=== PATIENT | female | born 1980 | race Asian ===

== ENCOUNTER 2021-09-18 18:13 | Inpatient (IN) | payer MEDICAID, OTHER ==
[~2021-09-18] VITALS: Ht 152.4 cm; Wt 43.1 kg
[2021-09-18] MEDS ORDERED: HydrOXYzine PAMOATE 25 MG CAPSULE PO PRN (20:00)
[2021-09-18] MEDS ORDERED: ZOLPIDEM TARTRATE 5 MG TABLET PO PRN (20:00)
[2021-09-18] MEDS ORDERED: ChlorproMAZINE HCL 50 MG TABLET PO PRN (20:00)
[2021-09-18 20:39] VITALS: BP 101/70
[2021-09-18] MEDS: OLANZapine 5 MG RAPDIS TABLET PO SCH (20:56)
[2021-09-18] MEDS ORDERED: MIRTAZAPINE 15 MG TABLET PO SCH (21:00)
[2021-09-18 22:20] LABS: APPEARANCE,URINE CLEAR (CLEAR); BILIRUBIN,URINE NEGATIVE (NEGATIVE); GLUCOSE, URINE (UA) NEGATIVE (NEGATIVE); KETONES,URINE NEGATIVE (NEGATIVE); LEUKOCYTE ESTERASE ,URINE LARGE (NEGATIVE); NITRATE,URINE NEGATIVE (NEGATIVE); OCCULT BLOOD,URINE NEGATIVE (NEGATIVE); PH,URINE 7.5 (5.0-8.0); PROTEIN,URINE NEGATIVE (NEGATIVE); UROBILINOGEN,URINE 0.2 mg/dL (<=1.0)
[2021-09-18 22:24] LABS: AMPHET/METH SCREEN,URINE NEGATIVE (NEGATIVE); BARBITURATE SCREEN, URINE NEGATIVE (NEGATIVE); BENZODIAZEPINES SCREEN,URINE NEGATIVE (NEGATIVE); CANNABINOID SCREEN,URINE NEGATIVE (NEGATIVE); COCAINE SCREEN,URINE NEGATIVE (NEGATIVE); METHADONE SCREEN, URINE NEGATIVE (NEGATIVE); OPIATE SCREEN,URINE NEGATIVE (NEGATIVE); PHENCYCLIDINE SCREEN,URINE NEGATIVE (NEGATIVE)
[2021-09-18 22:33] LABS: SQUAMOUS EPITHELIAL CELL,UR Many /LPF (None Seen)
[2021-09-18 22:34] LABS: BACTERIA,URINE Few /HPF (None Seen); RBC,URINE None Seen /HPF (0-2)
[2021-09-19 04:00] VITALS: BP 104/77
[2021-09-19 07:07] LABS: BASOPHILS % (AUTO) 0.9 % (0.0-2.0); EOSINOPHILS % (AUTO) 1.6 % (1.0-6.0); HEMATOCRIT 39.7 % (36-46); HEMOGLOBIN 12.6 g/dL (12.0-16.0); MEAN CORPUSCULAR HEMOGLOBIN 26.1 pg (26.0-34.0); MEAN CORPUSCULAR HGB CONC 31.6 G/dL (31.0-37.0); MEAN CORPUSCULAR VOLUME 83 fL (80-100); MONOCYTES % (AUTO) 12.5 % (2.0-9.0); NEUTROPHILS # (AUTO) 4.7 K/uL (1.8-7.7); PLATELET COUNT (AUTO) 274 K/uL (150-450); RED BLOOD CELL COUNT(AUTO) 4.82 MIL/uL (4.00-5.20); RED CELL DISTRIBUTION WIDTH 14.9 % (11.5-14.5)
[2021-09-19 07:19] LABS: ANION GAP 10 mmol/L (8-16); CALCIUM, TOTAL 9.3 mg/dL (8.8-10.5); CARBON DIOXIDE 26 mmol/L (22-29); CHLORIDE 104 mmol/L (98-107); CREATININE 0.76 mg/dL (0.60-1.30); GLOMERULAR FILTR. RATE CALC > 60 mL/min (>60); GLUCOSE,RANDOM 103 mg/dL (70-110); POTASSIUM 4.3 mmol/L (3.5-5.1); SODIUM SERUM 140 mmol/L (136-145); UREA NITROGEN, BLOOD 10 mg/dL (7-18)
[2021-09-19 07:34] LABS: ALANINE AMINOTRANSFERASE 21 U/L (12-78); ALBUMIN 3.4 g/dL (3.4-5.0); ALKALINE PHOSPHATASE 43 U/L (46-116); ASPARTATE AMINOTRANSFERASE 18 U/L (15-37); BILIRUBIN,TOTAL 0.3 mg/dL (0.1-1.0); FREE T4 (FREE THYROXINE) 1.25 ng/dL (0.76-1.46); HCG,QUANTITATIVE < 1 mIU/mL (0-6); THYROID STIMULATING HORMONE 5.06 uIU/mL (0.36-3.74); TOTAL PROTEIN, SERUM 7.2 g/dL (6.4-8.2)
[2021-09-19 08:00] VITALS: BP 105/73
[2021-09-19] MEDS ORDERED: PROMETHAZINE HCL 25 MG TABLET PO PRN (09:15)
[2021-09-19] MEDS ORDERED: ACETAMINOPHEN 325 MG TABLET PO PRN (09:15)
[2021-09-19] MEDS ORDERED: OLANZapine 5 MG RAPDIS TABLET PO PRN (09:15)
[2021-09-19] MEDS ORDERED: MAG HYDROX/AL HYDROX/SIMETH ES 30 ML SUSPENSION UDCUP PO PRN (09:15)
[2021-09-19] MEDS ORDERED: CYANOCOBALAMIN 1,000 MCG/ML VIAL IM ONE (09:15)
[2021-09-19] MEDS ORDERED: LOPERAMIDE HCL 2 MG CAPSULE PO PRN (09:15)
[2021-09-19] MEDS ORDERED: HydrOXYzine PAMOATE 50 MG CAPSULE PO PRN (09:15)
[2021-09-19] MEDS ORDERED: GuaiFENesin/D-METHORPHAN [SUGAR-FREE] 200-20MG/10 ML SYRUP UDCUP PO PRN (09:15)
[2021-09-19] MEDS ORDERED: TUBERCULIN, PURIFIED PROTEIN DERIVATIVE 5 TU/0.1 ML SYRINGE ID ONE (09:15)
[2021-09-19] MEDS: LORazepam 0.5 MG TABLET PO SCH ×3 (09:22→20:13)
[2021-09-19] MEDS: THIAMINE 100 MG TABLET PO SCH (16:08)
[2021-09-19 16:29] VITALS: BP 105/75
[2021-09-19] MEDS: MELATONIN 5 MG TABLET PO SCH (20:08)
[2021-09-19] MEDS: CEPHALEXIN MONOHYDRATE 500 MG CAPSULE PO SCH (20:10)
[2021-09-19] MEDS: OLANZapine 5 MG RAPDIS TABLET PO SCH (20:27)
[2021-09-20 07:12] VITALS: BP 108/80
[2021-09-20 08:31] VITALS: BP 99/61
[2021-09-20] MEDS: THIAMINE 100 MG TABLET PO SCH ×2 (10:06→16:59)
[2021-09-20] MEDS: LORazepam 0.5 MG TABLET PO SCH ×3 (10:07→21:09)
[2021-09-20] MEDS: FOLIC ACID 1 MG TABLET PO SCH (10:07)
[2021-09-20] MEDS: OMEGA-3/DHA/EPA/FISH OIL 1,000 MG CAPSULE PO SCH (10:07)
[2021-09-20] MEDS: CEPHALEXIN MONOHYDRATE 500 MG CAPSULE PO SCH ×2 (10:07→16:59)
[2021-09-20] MEDS: MULTIVITAMINS WITH MINERALS, THERAPEUTIC TABLET PO SCH (10:08)
[2021-09-20 12:28] LABS: HEMOGLOBIN A1C 4.3 % (3.8-5.6)
[2021-09-20 12:44] LABS: CHOL/HDL RATIO 3.7 (3.9-5.7); FREE T4 (FREE THYROXINE) 1.26 ng/dL (0.76-1.46); THYROID STIMULATING HORMONE 5.12 uIU/mL (0.36-3.74)
[2021-09-20 17:33] VITALS: BP 91/62
[2021-09-20] MEDS: MELATONIN 5 MG TABLET PO SCH (21:09)
[2021-09-20] MEDS: OLANZapine 5 MG RAPDIS TABLET PO SCH (21:10)
[2021-09-20] MEDS: MIRTAZAPINE 15 MG TABLET PO SCH (21:10)
[2021-09-21 07:00] VITALS: BP 116/69
[2021-09-21] MEDS: OMEGA-3/DHA/EPA/FISH OIL 1,000 MG CAPSULE PO SCH (08:34)
[2021-09-21] MEDS: FOLIC ACID 1 MG TABLET PO SCH (08:34)
[2021-09-21] MEDS: MULTIVITAMINS WITH MINERALS, THERAPEUTIC TABLET PO SCH (08:34)
[2021-09-21] MEDS: CEPHALEXIN MONOHYDRATE 500 MG CAPSULE PO SCH ×2 (08:34→17:44)
[2021-09-21] MEDS: THIAMINE 100 MG TABLET PO SCH ×2 (08:34→17:44)
[2021-09-21] MEDS: LORazepam 0.5 MG TABLET PO SCH ×3 (08:38→20:56)
[2021-09-21 09:11] VITALS: BP 111/69
[2021-09-21 16:30] VITALS: BP 99/75
[2021-09-21] MEDS: MIRTAZAPINE 15 MG TABLET PO SCH (20:56)
[2021-09-21] MEDS: MELATONIN 5 MG TABLET PO SCH (20:56)
[2021-09-21] MEDS: OLANZapine 5 MG RAPDIS TABLET PO SCH (21:43)
[2021-09-22 07:19] LABS: PHOSPHORUS 5.4 mg/dL (2.5-4.9)
[2021-09-22 09:13] VITALS: BP 96/66
[2021-09-22] MEDS: OMEGA-3/DHA/EPA/FISH OIL 1,000 MG CAPSULE PO SCH (09:14)
[2021-09-22] MEDS: THIAMINE 100 MG TABLET PO SCH ×2 (09:14→16:37)
[2021-09-22] MEDS: FOLIC ACID 1 MG TABLET PO SCH (09:14)
[2021-09-22] MEDS: CEPHALEXIN MONOHYDRATE 500 MG CAPSULE PO SCH ×2 (09:18→16:37)
[2021-09-22] MEDS: LORazepam 0.5 MG TABLET PO SCH ×3 (09:18→20:31)
[2021-09-22] MEDS: MULTIVITAMINS WITH MINERALS, THERAPEUTIC TABLET PO SCH (09:18)
[2021-09-22 16:15] VITALS: BP 93/67
[2021-09-22] MEDS: OLANZapine 5 MG RAPDIS TABLET PO SCH (20:31)
[2021-09-22] MEDS: MELATONIN 5 MG TABLET PO SCH (20:31)
[2021-09-22] MEDS: MIRTAZAPINE 15 MG TABLET PO SCH (20:31)
[2021-09-23 07:52] LABS: PHOSPHORUS 4.4 mg/dL (2.5-4.9)
[2021-09-23 08:33] VITALS: BP 102/70
[2021-09-23] MEDS: CEPHALEXIN MONOHYDRATE 500 MG CAPSULE PO SCH ×2 (08:34→16:18)
[2021-09-23] MEDS: LORazepam 0.5 MG TABLET PO SCH ×3 (08:35→20:43)
[2021-09-23] MEDS: OMEGA-3/DHA/EPA/FISH OIL 1,000 MG CAPSULE PO SCH (08:36)
[2021-09-23] MEDS: MULTIVITAMINS WITH MINERALS, THERAPEUTIC TABLET PO SCH (08:36)
[2021-09-23] MEDS: THIAMINE 100 MG TABLET PO SCH ×2 (08:36→16:18)
[2021-09-23] MEDS: FOLIC ACID 1 MG TABLET PO SCH (08:36)
[2021-09-23 08:43] LABS: COVID AG,FIA SOURCE NASAL SWAB
[2021-09-23 16:13] VITALS: BP 93/61
[2021-09-23] MEDS: MIRTAZAPINE 15 MG TABLET PO SCH (20:43)
[2021-09-23] MEDS: OLANZapine 10 MG RAPDIS TABLET PO SCH (20:43)
[2021-09-23] MEDS: MELATONIN 5 MG TABLET PO SCH (21:06)
[2021-09-24] MEDS: FOLIC ACID 1 MG TABLET PO SCH (08:15)
[2021-09-24] MEDS: CEPHALEXIN MONOHYDRATE 500 MG CAPSULE PO SCH ×2 (08:15→16:47)
[2021-09-24] MEDS: THIAMINE 100 MG TABLET PO SCH ×2 (08:15→16:48)
[2021-09-24] MEDS: LORazepam 0.5 MG TABLET PO SCH ×3 (08:15→21:09)
[2021-09-24] MEDS: MULTIVITAMINS WITH MINERALS, THERAPEUTIC TABLET PO SCH (08:15)
[2021-09-24] MEDS: OMEGA-3/DHA/EPA/FISH OIL 1,000 MG CAPSULE PO SCH (08:15)
[2021-09-24 08:41] VITALS: BP 113/76
[2021-09-24 16:00] VITALS: BP 99/68
[2021-09-24] MEDS: MIRTAZAPINE 15 MG TABLET PO SCH (21:08)
[2021-09-24] MEDS: MELATONIN 5 MG TABLET PO SCH (21:08)
[2021-09-24] MEDS: OLANZapine 10 MG RAPDIS TABLET PO SCH (21:09)
[2021-09-25 07:32] LABS: ALANINE AMINOTRANSFERASE 23 U/L (12-78); ALBUMIN 3.5 g/dL (3.4-5.0); ALKALINE PHOSPHATASE 44 U/L (46-116); ANION GAP 7 mmol/L (8-16); ASPARTATE AMINOTRANSFERASE 23 U/L (15-37); BILIRUBIN,TOTAL 0.3 mg/dL (0.1-1.0); CARBON DIOXIDE 28 mmol/L (22-29); CHLORIDE 105 mmol/L (98-107); CREATININE 0.73 mg/dL (0.60-1.30); GLOMERULAR FILTR. RATE CALC > 60 mL/min (>60); GLUCOSE,RANDOM 92 mg/dL (70-110); POTASSIUM 4.1 mmol/L (3.5-5.1); SODIUM SERUM 140 mmol/L (136-145); TOTAL PROTEIN, SERUM 6.9 g/dL (6.4-8.2); UREA NITROGEN, BLOOD 16 mg/dL (7-18)
[2021-09-25 08:00] VITALS: BP 99/58
[2021-09-25] MEDS: CEPHALEXIN MONOHYDRATE 500 MG CAPSULE PO SCH ×2 (08:19→16:35)
[2021-09-25] MEDS: LORazepam 0.5 MG TABLET PO SCH ×3 (08:19→21:00)
[2021-09-25] MEDS: THIAMINE 100 MG TABLET PO SCH ×2 (08:19→16:35)
[2021-09-25] MEDS: FOLIC ACID 1 MG TABLET PO SCH (08:19)
[2021-09-25] MEDS: OMEGA-3/DHA/EPA/FISH OIL 1,000 MG CAPSULE PO SCH (08:20)
[2021-09-25] MEDS: MULTIVITAMINS WITH MINERALS, THERAPEUTIC TABLET PO SCH (08:20)
[2021-09-25 16:21] VITALS: BP 92/61
[2021-09-25] MEDS: OLANZapine 10 MG RAPDIS TABLET PO SCH (21:06)
[2021-09-25] MEDS: MELATONIN 5 MG TABLET PO SCH (21:06)
[2021-09-25] MEDS: MIRTAZAPINE 30 MG TABLET PO SCH (21:07)
[2021-09-26 08:00] VITALS: BP 92/61
[2021-09-26] MEDS: CEPHALEXIN MONOHYDRATE 500 MG CAPSULE PO SCH ×2 (10:10→17:11)
[2021-09-26] MEDS: FOLIC ACID 1 MG TABLET PO SCH (10:10)
[2021-09-26] MEDS: THIAMINE 100 MG TABLET PO SCH ×2 (10:10→17:11)
[2021-09-26] MEDS: MULTIVITAMINS WITH MINERALS, THERAPEUTIC TABLET PO SCH (10:10)
[2021-09-26] MEDS: OMEGA-3/DHA/EPA/FISH OIL 1,000 MG CAPSULE PO SCH (10:10)
[2021-09-26] MEDS: LORazepam 0.5 MG TABLET PO SCH ×3 (10:10→21:03)
[2021-09-26 16:00] VITALS: BP 100/69
[2021-09-26] MEDS ORDERED: OMEG-135 PO (16:21)
[2021-09-26] MEDS ORDERED: OLAN10TA26 PO (16:21)
[2021-09-26] MEDS ORDERED: LORA-999 PO (16:21)
[2021-09-26] MEDS ORDERED: MELA5TAB40 PO (16:21)
[2021-09-26] MEDS ORDERED: MIRT30 PO (16:21)
[2021-09-26] MEDS: OLANZapine 10 MG RAPDIS TABLET PO SCH (21:03)
[2021-09-26] MEDS: MELATONIN 5 MG TABLET PO SCH (21:03)
[2021-09-26] MEDS: MIRTAZAPINE 30 MG TABLET PO SCH (21:03)
[2021-09-27 08:00] VITALS: BP 101/63
[2021-09-27] MEDS: FOLIC ACID 1 MG TABLET PO SCH (08:33)
[2021-09-27] MEDS: OMEGA-3/DHA/EPA/FISH OIL 1,000 MG CAPSULE PO SCH (08:33)
[2021-09-27] MEDS: LORazepam 0.5 MG TABLET PO SCH ×3 (08:33→20:14)
[2021-09-27] MEDS: THIAMINE 100 MG TABLET PO SCH ×2 (08:33→16:43)
[2021-09-27] MEDS: MULTIVITAMINS WITH MINERALS, THERAPEUTIC TABLET PO SCH (08:33)
[2021-09-27 09:20] VITALS: BP 101/63
[2021-09-27 16:44] VITALS: BP 96/66
[2021-09-27] MEDS: OLANZapine 10 MG RAPDIS TABLET PO SCH (20:14)
[2021-09-27] MEDS: MELATONIN 5 MG TABLET PO SCH (20:14)
[2021-09-27] MEDS: MIRTAZAPINE 30 MG TABLET PO SCH (20:14)
[2021-09-28 04:34] VITALS: BP 94/60
[2021-09-28] MEDS: THIAMINE 100 MG TABLET PO SCH ×2 (08:36→16:57)
[2021-09-28] MEDS: MULTIVITAMINS WITH MINERALS, THERAPEUTIC TABLET PO SCH (08:36)
[2021-09-28] MEDS: OMEGA-3/DHA/EPA/FISH OIL 1,000 MG CAPSULE PO SCH (08:36)
[2021-09-28] MEDS: FOLIC ACID 1 MG TABLET PO SCH (08:36)
[2021-09-28] MEDS: LORazepam 0.5 MG TABLET PO SCH ×3 (08:36→21:00)
[2021-09-28 10:51] VITALS: BP 114/73
[2021-09-28 18:39] VITALS: BP 95/63
[2021-09-28] MEDS: MIRTAZAPINE 15 MG TABLET PO SCH (20:51)
[2021-09-28] MEDS: MELATONIN 5 MG TABLET PO SCH (20:51)
[2021-09-28] MEDS: OLANZapine 10 MG RAPDIS TABLET PO SCH (20:51)
[2021-09-29] MEDS: LORazepam 0.5 MG TABLET PO SCH ×3 (08:21→20:26)
[2021-09-29] MEDS: OMEGA-3/DHA/EPA/FISH OIL 1,000 MG CAPSULE PO SCH (08:21)
[2021-09-29] MEDS: MULTIVITAMINS WITH MINERALS, THERAPEUTIC TABLET PO SCH (08:21)
[2021-09-29] MEDS: FOLIC ACID 1 MG TABLET PO SCH (08:21)
[2021-09-29] MEDS: THIAMINE 100 MG TABLET PO SCH (08:21)
[2021-09-29 10:33] VITALS: BP 99/69
[2021-09-29 16:26] VITALS: BP 109/75
[2021-09-29] MEDS: MIRTAZAPINE 15 MG TABLET PO SCH (20:27)
[2021-09-29] MEDS: OLANZapine 10 MG RAPDIS TABLET PO SCH (20:27)
[2021-09-29] MEDS: MELATONIN 5 MG TABLET PO SCH (20:27)
[2021-09-30] MEDS: OMEGA-3/DHA/EPA/FISH OIL 1,000 MG CAPSULE PO SCH (08:21)
[2021-09-30] MEDS: LORazepam 0.5 MG TABLET PO SCH ×3 (08:21→21:18)
[2021-09-30] MEDS: MULTIVITAMINS WITH MINERALS, THERAPEUTIC TABLET PO SCH (08:21)
[2021-09-30 08:45] VITALS: BP 116/82
[2021-09-30 12:37] LABS: COVID AG,FIA SOURCE NASAL SWAB
[2021-09-30 16:06] VITALS: BP 93/57
[2021-09-30] MEDS: MELATONIN 5 MG TABLET PO SCH (21:18)
[2021-09-30] MEDS: MIRTAZAPINE 15 MG TABLET PO SCH (21:19)
[2021-10-01 08:00] VITALS: BP 97/59
[2021-10-01] MEDS: OLANZapine 5 MG RAPDIS TABLET PO SCH ×3 (09:19→16:34)
[2021-10-01] MEDS: MULTIVITAMINS WITH MINERALS, THERAPEUTIC TABLET PO SCH (09:19)
[2021-10-01] MEDS: OMEGA-3/DHA/EPA/FISH OIL 1,000 MG CAPSULE PO SCH (09:19)
[2021-10-01] MEDS: LORazepam 0.5 MG TABLET PO SCH ×3 (09:19→21:00)
[2021-10-01 16:35] VITALS: BP 100/55
[2021-10-01] MEDS: MELATONIN 5 MG TABLET PO SCH (20:43)
[2021-10-01] MEDS: MIRTAZAPINE 15 MG TABLET PO SCH (20:43)
[2021-10-02] MEDS: OLANZapine 5 MG RAPDIS TABLET PO SCH ×3 (08:50→16:20)
[2021-10-02] MEDS: MULTIVITAMINS WITH MINERALS, THERAPEUTIC TABLET PO SCH (08:50)
[2021-10-02] MEDS: LORazepam 0.5 MG TABLET PO SCH ×3 (08:50→20:10)
[2021-10-02] MEDS: OMEGA-3/DHA/EPA/FISH OIL 1,000 MG CAPSULE PO SCH (08:50)
[2021-10-02 09:27] VITALS: BP 107/95
[2021-10-02 16:00] VITALS: BP 101/85
[2021-10-02] MEDS: MELATONIN 5 MG TABLET PO SCH (20:10)
[2021-10-02] MEDS: MIRTAZAPINE 15 MG TABLET PO SCH (20:10)
[2021-10-03] MEDS: OLANZapine 5 MG RAPDIS TABLET PO SCH ×3 (08:17→17:41)
[2021-10-03] MEDS: OMEGA-3/DHA/EPA/FISH OIL 1,000 MG CAPSULE PO SCH (08:17)
[2021-10-03] MEDS: MULTIVITAMINS WITH MINERALS, THERAPEUTIC TABLET PO SCH (08:17)
[2021-10-03] MEDS: LORazepam 0.5 MG TABLET PO SCH ×3 (08:18→20:39)
[2021-10-03 09:31] VITALS: BP 98/64
[2021-10-03 16:00] VITALS: BP 99/75
[2021-10-03] MEDS: MIRTAZAPINE 15 MG TABLET PO SCH (20:39)
[2021-10-03] MEDS: MELATONIN 5 MG TABLET PO SCH (20:39)
[2021-10-04 03:00] VITALS: BP 105/71
[2021-10-04 08:45] VITALS: BP 107/60
[2021-10-04] MEDS: MULTIVITAMINS WITH MINERALS, THERAPEUTIC TABLET PO SCH (09:27)
[2021-10-04] MEDS: OMEGA-3/DHA/EPA/FISH OIL 1,000 MG CAPSULE PO SCH (09:27)
[2021-10-04] MEDS: LORazepam 0.5 MG TABLET PO SCH ×3 (09:27→20:48)
[2021-10-04] MEDS: OLANZapine 5 MG RAPDIS TABLET PO SCH ×4 (09:27→16:46)
[2021-10-04 16:32] VITALS: BP 98/62
[2021-10-04] MEDS: MIRTAZAPINE 15 MG TABLET PO SCH (20:48)
[2021-10-04] MEDS: MELATONIN 5 MG TABLET PO SCH (20:48)
[2021-10-05 08:45] VITALS: BP 94/64
[2021-10-05] MEDS: MULTIVITAMINS WITH MINERALS, THERAPEUTIC TABLET PO SCH (08:59)
[2021-10-05] MEDS: OMEGA-3/DHA/EPA/FISH OIL 1,000 MG CAPSULE PO SCH (08:59)
[2021-10-05] MEDS: LORazepam 0.5 MG TABLET PO SCH ×3 (08:59→21:08)
[2021-10-05] MEDS: OLANZapine 5 MG RAPDIS TABLET PO SCH ×3 (08:59→17:36)
[2021-10-05 16:00] VITALS: BP 96/63
[2021-10-05] MEDS: MIRTAZAPINE 15 MG TABLET PO SCH (21:08)
[2021-10-05] MEDS: MELATONIN 5 MG TABLET PO SCH (21:09)
[2021-10-06 08:22] VITALS: BP 111/60
[2021-10-06] MEDS: MULTIVITAMINS WITH MINERALS, THERAPEUTIC TABLET PO SCH (09:57)
[2021-10-06] MEDS: OMEGA-3/DHA/EPA/FISH OIL 1,000 MG CAPSULE PO SCH (09:57)
[2021-10-06] MEDS: OLANZapine 5 MG RAPDIS TABLET PO SCH ×3 (09:57→17:30)
[2021-10-06] MEDS: LORazepam 0.5 MG TABLET PO SCH ×3 (09:57→21:43)
[2021-10-06 16:21] VITALS: BP 99/64
[2021-10-06 16:22] VITALS: BP 99/64
[2021-10-06] MEDS: MELATONIN 5 MG TABLET PO SCH (21:42)
[2021-10-06] MEDS: MIRTAZAPINE 15 MG TABLET PO SCH (21:43)
[2021-10-07] MEDS: OLANZapine 5 MG RAPDIS TABLET PO SCH ×3 (08:04→16:29)
[2021-10-07] MEDS: MULTIVITAMINS WITH MINERALS, THERAPEUTIC TABLET PO SCH (08:04)
[2021-10-07] MEDS: LORazepam 0.5 MG TABLET PO SCH ×3 (08:04→20:47)
[2021-10-07] MEDS: OMEGA-3/DHA/EPA/FISH OIL 1,000 MG CAPSULE PO SCH (08:04)
[2021-10-07 08:26] VITALS: BP 107/55
[2021-10-07 08:53] LABS: COVID AG,FIA SOURCE NASOPHARYNGEAL
[2021-10-07 16:44] VITALS: BP 91/62
[2021-10-07] MEDS: MELATONIN 5 MG TABLET PO SCH (20:47)
[2021-10-07] MEDS: MIRTAZAPINE 15 MG TABLET PO SCH (20:47)
[2021-10-08] MEDS: LORazepam 0.5 MG TABLET PO SCH ×3 (08:35→21:00)
[2021-10-08] MEDS: OMEGA-3/DHA/EPA/FISH OIL 1,000 MG CAPSULE PO SCH (08:35)
[2021-10-08] MEDS: MULTIVITAMINS WITH MINERALS, THERAPEUTIC TABLET PO SCH (08:35)
[2021-10-08] MEDS: OLANZapine 5 MG RAPDIS TABLET PO SCH ×3 (08:35→16:23)
[2021-10-08 08:41] VITALS: BP 104/63
[2021-10-08 16:12] VITALS: BP 99/62
[2021-10-08] MEDS: MELATONIN 5 MG TABLET PO SCH (21:06)
[2021-10-08] MEDS: MIRTAZAPINE 30 MG TABLET PO SCH (21:06)
[2021-10-09 05:15] VITALS: BP 90/59
[2021-10-09] MEDS: MULTIVITAMINS WITH MINERALS, THERAPEUTIC TABLET PO SCH (08:18)
[2021-10-09] MEDS: LORazepam 0.5 MG TABLET PO SCH ×3 (08:18→20:57)
[2021-10-09] MEDS: OMEGA-3/DHA/EPA/FISH OIL 1,000 MG CAPSULE PO SCH (08:18)
[2021-10-09] MEDS: OLANZapine 5 MG RAPDIS TABLET PO SCH ×3 (08:18→16:46)
[2021-10-09 09:30] VITALS: BP 109/59
[2021-10-09 16:00] VITALS: BP 98/58
[2021-10-09 16:56] VITALS: BP 98/58
[2021-10-09 17:45] LABS: ALANINE AMINOTRANSFERASE 25 U/L (12-78); ALBUMIN 3.1 g/dL (3.4-5.0); ALKALINE PHOSPHATASE 51 U/L (46-116); ANION GAP 4 mmol/L (8-16); ASPARTATE AMINOTRANSFERASE 19 U/L (15-37); BILIRUBIN,TOTAL 0.2 mg/dL (0.1-1.0); CALCIUM, TOTAL 8.6 mg/dL (8.8-10.5); CARBON DIOXIDE 30 mmol/L (22-29); CHLORIDE 105 mmol/L (98-107); GLOMERULAR FILTR. RATE CALC > 60 mL/min (>60); GLUCOSE,RANDOM 88 mg/dL (70-110); SODIUM SERUM 139 mmol/L (136-145); TOTAL PROTEIN, SERUM 6.4 g/dL (6.4-8.2); UREA NITROGEN, BLOOD 23 mg/dL (7-18)
[2021-10-09] MEDS: MELATONIN 5 MG TABLET PO SCH (20:55)
[2021-10-09] MEDS: MIRTAZAPINE 30 MG TABLET PO SCH (20:55)
[2021-10-10 08:08] VITALS: BP 106/72
[2021-10-10] MEDS: LORazepam 0.5 MG TABLET PO SCH ×3 (09:02→20:33)
[2021-10-10] MEDS: OMEGA-3/DHA/EPA/FISH OIL 1,000 MG CAPSULE PO SCH (09:02)
[2021-10-10] MEDS: MULTIVITAMINS WITH MINERALS, THERAPEUTIC TABLET PO SCH (09:02)
[2021-10-10] MEDS: OLANZapine 5 MG RAPDIS TABLET PO SCH ×3 (09:03→16:42)
[2021-10-10 16:41] VITALS: BP 90/58
[2021-10-10 20:33] VITALS: BP 90/59
[2021-10-10] MEDS: MIRTAZAPINE 30 MG TABLET PO SCH (20:33)
[2021-10-10] MEDS: MELATONIN 5 MG TABLET PO SCH (20:33)
[2021-10-10 21:45] VITALS: BP 128/70
[2021-10-11] MEDS: OLANZapine 5 MG RAPDIS TABLET PO SCH ×3 (08:39→16:41)
[2021-10-11] MEDS: LORazepam 0.5 MG TABLET PO SCH ×3 (08:39→20:26)
[2021-10-11] MEDS: MULTIVITAMINS WITH MINERALS, THERAPEUTIC TABLET PO SCH (08:39)
[2021-10-11] MEDS: OMEGA-3/DHA/EPA/FISH OIL 1,000 MG CAPSULE PO SCH (08:39)
[2021-10-11 09:42] VITALS: BP 100/64
[2021-10-11 17:08] VITALS: BP 99/67
[2021-10-11] MEDS: MELATONIN 5 MG TABLET PO SCH (20:26)
[2021-10-11] MEDS: MIRTAZAPINE 30 MG TABLET PO SCH (20:26)
[2021-10-12] MEDS: LORazepam 0.5 MG TABLET PO SCH ×3 (08:22→21:00)
[2021-10-12] MEDS: OLANZapine 5 MG RAPDIS TABLET PO SCH ×3 (08:22→16:39)
[2021-10-12] MEDS: OMEGA-3/DHA/EPA/FISH OIL 1,000 MG CAPSULE PO SCH (08:22)
[2021-10-12] MEDS: MULTIVITAMINS WITH MINERALS, THERAPEUTIC TABLET PO SCH (08:22)
[2021-10-12 10:15] VITALS: BP 97/57
[2021-10-12 16:24] VITALS: BP 97/60
[2021-10-12] MEDS: MELATONIN 5 MG TABLET PO SCH (21:07)
[2021-10-12] MEDS: MIRTAZAPINE 30 MG TABLET PO SCH (21:07)
[2021-10-13] MEDS: OLANZapine 5 MG RAPDIS TABLET PO SCH ×3 (08:15→16:13)
[2021-10-13] MEDS: MULTIVITAMINS WITH MINERALS, THERAPEUTIC TABLET PO SCH (08:15)
[2021-10-13] MEDS: LORazepam 0.5 MG TABLET PO SCH ×3 (08:15→20:08)
[2021-10-13] MEDS: OMEGA-3/DHA/EPA/FISH OIL 1,000 MG CAPSULE PO SCH (08:15)
[2021-10-13 10:35] VITALS: BP 95/63
[2021-10-13 16:27] VITALS: BP 105/76
[2021-10-13] MEDS: MELATONIN 5 MG TABLET PO SCH (20:08)
[2021-10-13] MEDS: MIRTAZAPINE 30 MG TABLET PO SCH (20:08)
[2021-10-14 08:00] VITALS: BP 106/65
[2021-10-14] MEDS: LORazepam 0.5 MG TABLET PO SCH ×3 (08:27→20:19)
[2021-10-14] MEDS: OMEGA-3/DHA/EPA/FISH OIL 1,000 MG CAPSULE PO SCH (08:27)
[2021-10-14] MEDS: OLANZapine 5 MG RAPDIS TABLET PO SCH ×3 (08:27→16:34)
[2021-10-14] MEDS: MULTIVITAMINS WITH MINERALS, THERAPEUTIC TABLET PO SCH (08:27)
[2021-10-14 10:56] LABS: COVID AG,FIA SOURCE NASAL SWAB
[2021-10-14 16:35] VITALS: BP 94/60
[2021-10-14] MEDS: MELATONIN 5 MG TABLET PO SCH (20:18)
[2021-10-14] MEDS: MIRTAZAPINE 30 MG TABLET PO SCH (20:18)
[2021-10-15 08:00] VITALS: BP 105/62
[2021-10-15] MEDS: OMEGA-3/DHA/EPA/FISH OIL 1,000 MG CAPSULE PO SCH (08:07)
[2021-10-15] MEDS: MULTIVITAMINS WITH MINERALS, THERAPEUTIC TABLET PO SCH (08:07)
[2021-10-15] MEDS: LORazepam 0.5 MG TABLET PO SCH ×3 (08:07→20:33)
[2021-10-15] MEDS: OLANZapine 5 MG RAPDIS TABLET PO SCH ×3 (08:08→16:32)
[2021-10-15 16:47] VITALS: BP 99/69
[2021-10-15] MEDS: MIRTAZAPINE 30 MG TABLET PO SCH (20:33)
[2021-10-15] MEDS: MELATONIN 5 MG TABLET PO SCH (20:34)
[2021-10-16 08:01] VITALS: BP 104/69
[2021-10-16] MEDS: LORazepam 0.5 MG TABLET PO SCH ×3 (08:40→20:10)
[2021-10-16] MEDS: OMEGA-3/DHA/EPA/FISH OIL 1,000 MG CAPSULE PO SCH (08:41)
[2021-10-16] MEDS: MULTIVITAMINS WITH MINERALS, THERAPEUTIC TABLET PO SCH (08:41)
[2021-10-16] MEDS: OLANZapine 5 MG RAPDIS TABLET PO SCH ×3 (08:41→16:08)
[2021-10-16 16:43] VITALS: BP 98/62
[2021-10-16] MEDS: MIRTAZAPINE 30 MG TABLET PO SCH (20:10)
[2021-10-16] MEDS: MELATONIN 5 MG TABLET PO SCH (20:10)
[2021-10-17] MEDS: LORazepam 0.5 MG TABLET PO SCH ×3 (08:16→20:27)
[2021-10-17] MEDS: OMEGA-3/DHA/EPA/FISH OIL 1,000 MG CAPSULE PO SCH (08:16)
[2021-10-17] MEDS: MULTIVITAMINS WITH MINERALS, THERAPEUTIC TABLET PO SCH (08:16)
[2021-10-17] MEDS: BuPROPion HCL XL 150 MG ER TABLET PO SCH (08:16)
[2021-10-17] MEDS: OLANZapine 5 MG RAPDIS TABLET PO SCH ×3 (08:16→16:27)
[2021-10-17 09:24] VITALS: BP 91/64
[2021-10-17 16:23] VITALS: BP 88/58
[2021-10-17] MEDS: MIRTAZAPINE 15 MG TABLET PO SCH (20:15)
[2021-10-17] MEDS: MELATONIN 5 MG TABLET PO SCH (20:15)
[2021-10-17 20:20] VITALS: BP 93/59
[2021-10-17] MEDS ORDERED: LORazepam 0.5 MG TABLET PO SCH (21:00)
[2021-10-18 06:09] VITALS: BP 96/68
[2021-10-18] MEDS: BuPROPion HCL XL 150 MG ER TABLET PO SCH (08:12)
[2021-10-18] MEDS: MULTIVITAMINS WITH MINERALS, THERAPEUTIC TABLET PO SCH (08:12)
[2021-10-18] MEDS: LORazepam 0.5 MG TABLET PO SCH ×3 (08:12→20:52)
[2021-10-18] MEDS: OMEGA-3/DHA/EPA/FISH OIL 1,000 MG CAPSULE PO SCH (08:12)
[2021-10-18] MEDS: OLANZapine 5 MG RAPDIS TABLET PO SCH ×3 (08:13→16:52)
[2021-10-18 09:08] VITALS: BP 106/72
[2021-10-18 16:53] VITALS: BP 85/62
[2021-10-18 20:01] VITALS: BP 84/60
[2021-10-18] MEDS: MELATONIN 5 MG TABLET PO SCH (20:24)
[2021-10-18] MEDS: MIRTAZAPINE 15 MG TABLET PO SCH (20:24)
[2021-10-19 02:29] VITALS: BP 87/58
[2021-10-19 06:46] LABS: ALANINE AMINOTRANSFERASE 24 U/L (12-78); ALBUMIN 3.5 g/dL (3.4-5.0); ALKALINE PHOSPHATASE 48 U/L (46-116); ANION GAP 7 mmol/L (8-16); ASPARTATE AMINOTRANSFERASE 19 U/L (15-37); BILIRUBIN,TOTAL 0.3 mg/dL (0.1-1.0); CALCIUM, TOTAL 9.7 mg/dL (8.8-10.5); CARBON DIOXIDE 24 mmol/L (22-29); CHLORIDE 105 mmol/L (98-107); CREATININE 0.67 mg/dL (0.60-1.30); GLOMERULAR FILTR. RATE CALC > 60 mL/min (>60); GLUCOSE,RANDOM 90 mg/dL (70-110); PHOSPHORUS 4.3 mg/dL (2.5-4.9); SODIUM SERUM 136 mmol/L (136-145); TOTAL PROTEIN, SERUM 7.3 g/dL (6.4-8.2); UREA NITROGEN, BLOOD 18 mg/dL (7-18)
[2021-10-19 08:00] VITALS: BP 86/61
[2021-10-19] MEDS: OMEGA-3/DHA/EPA/FISH OIL 1,000 MG CAPSULE PO SCH (08:53)
[2021-10-19] MEDS: MULTIVITAMINS WITH MINERALS, THERAPEUTIC TABLET PO SCH (08:53)
[2021-10-19] MEDS: BuPROPion HCL XL 150 MG ER TABLET PO SCH (08:53)
[2021-10-19] MEDS: LORazepam 0.5 MG TABLET PO SCH ×4 (08:53→20:39)
[2021-10-19] MEDS: OLANZapine 5 MG RAPDIS TABLET PO SCH ×3 (08:53→17:11)
[2021-10-19 16:31] VITALS: BP 98/60
[2021-10-19] MEDS: MELATONIN 5 MG TABLET PO SCH (20:39)
[2021-10-19] MEDS: MIRTAZAPINE 15 MG TABLET PO SCH (20:39)
[2021-10-20 08:46] VITALS: BP 100/58
[2021-10-20] MEDS: LORazepam 0.5 MG TABLET PO SCH ×3 (09:00→20:55)
[2021-10-20] MEDS: OLANZapine 5 MG RAPDIS TABLET PO SCH ×3 (09:11→16:30)
[2021-10-20] MEDS: OMEGA-3/DHA/EPA/FISH OIL 1,000 MG CAPSULE PO SCH (09:11)
[2021-10-20] MEDS: MULTIVITAMINS WITH MINERALS, THERAPEUTIC TABLET PO SCH (09:11)
[2021-10-20] MEDS: BuPROPion HCL XL 150 MG ER TABLET PO SCH (09:12)
[2021-10-20 16:15] VITALS: BP 99/54
[2021-10-20] MEDS: MIRTAZAPINE 15 MG TABLET PO SCH (20:56)
[2021-10-20] MEDS: MELATONIN 5 MG TABLET PO SCH (20:57)
[2021-10-21 08:25] LABS: COVID AG,FIA SOURCE NASAL SWAB
[2021-10-21] MEDS: LORazepam 0.5 MG TABLET PO SCH ×4 (09:00→20:19)
[2021-10-21] MEDS: BuPROPion HCL XL 150 MG ER TABLET PO SCH (09:01)
[2021-10-21] MEDS: MULTIVITAMINS WITH MINERALS, THERAPEUTIC TABLET PO SCH (09:01)
[2021-10-21] MEDS: OMEGA-3/DHA/EPA/FISH OIL 1,000 MG CAPSULE PO SCH (09:02)
[2021-10-21] MEDS: OLANZapine 5 MG RAPDIS TABLET PO SCH ×3 (09:02→16:07)
[2021-10-21 09:43] VITALS: BP 99/55
[2021-10-21 16:00] VITALS: BP 106/75
[2021-10-21] MEDS: MELATONIN 5 MG TABLET PO SCH (20:19)
[2021-10-21] MEDS: MIRTAZAPINE 15 MG TABLET PO SCH (20:19)
[2021-10-22] MEDS: OLANZapine 5 MG RAPDIS TABLET PO SCH ×3 (08:50→16:43)
[2021-10-22] MEDS: MULTIVITAMINS WITH MINERALS, THERAPEUTIC TABLET PO SCH (08:51)
[2021-10-22] MEDS: OMEGA-3/DHA/EPA/FISH OIL 1,000 MG CAPSULE PO SCH (08:51)
[2021-10-22] MEDS: BuPROPion HCL XL 150 MG ER TABLET PO SCH (08:51)
[2021-10-22] MEDS: LORazepam 0.5 MG TABLET PO SCH ×3 (08:51→20:40)
[2021-10-22 09:11] VITALS: BP 109/74
[2021-10-22 16:08] VITALS: BP 96/59
[2021-10-22] MEDS: MIRTAZAPINE 15 MG TABLET PO SCH (20:35)
[2021-10-22] MEDS: MELATONIN 5 MG TABLET PO SCH (20:36)
[2021-10-23 03:23] VITALS: BP 91/60
[2021-10-23 08:00] VITALS: BP 106/65
[2021-10-23] MEDS: OLANZapine 5 MG RAPDIS TABLET PO SCH ×3 (08:17→16:41)
[2021-10-23] MEDS: LORazepam 0.5 MG TABLET PO SCH ×3 (08:18→21:14)
[2021-10-23] MEDS: BuPROPion HCL XL 150 MG ER TABLET PO SCH (08:18)
[2021-10-23] MEDS: OMEGA-3/DHA/EPA/FISH OIL 1,000 MG CAPSULE PO SCH (08:18)
[2021-10-23] MEDS: MULTIVITAMINS WITH MINERALS, THERAPEUTIC TABLET PO SCH (08:18)
[2021-10-23 16:18] VITALS: BP 112/82
[2021-10-23] MEDS: MIRTAZAPINE 15 MG TABLET PO SCH (21:14)
[2021-10-23] MEDS: MELATONIN 5 MG TABLET PO SCH (21:14)
[2021-10-23 21:18] VITALS: BP 100/64
[2021-10-24 08:00] VITALS: BP 113/76
[2021-10-24] MEDS: OMEGA-3/DHA/EPA/FISH OIL 1,000 MG CAPSULE PO SCH (08:52)
[2021-10-24] MEDS: OLANZapine 5 MG RAPDIS TABLET PO SCH ×3 (08:52→16:47)
[2021-10-24] MEDS: MULTIVITAMINS WITH MINERALS, THERAPEUTIC TABLET PO SCH (08:52)
[2021-10-24] MEDS: LORazepam 0.5 MG TABLET PO SCH ×3 (08:53→20:50)
[2021-10-24] MEDS: BuPROPion HCL XL 150 MG ER TABLET PO SCH (08:53)
[2021-10-24 16:22] VITALS: BP 90/61
[2021-10-24 16:45] VITALS: BP 100/66
[2021-10-24] MEDS: MELATONIN 5 MG TABLET PO SCH (20:50)
[2021-10-24] MEDS: MIRTAZAPINE 15 MG TABLET PO SCH (20:52)
[2021-10-25] MEDS: OMEGA-3/DHA/EPA/FISH OIL 1,000 MG CAPSULE PO SCH (09:01)
[2021-10-25] MEDS: OLANZapine 5 MG RAPDIS TABLET PO SCH ×3 (09:01→16:47)
[2021-10-25] MEDS: MULTIVITAMINS WITH MINERALS, THERAPEUTIC TABLET PO SCH (09:01)
[2021-10-25] MEDS: BuPROPion HCL XL 150 MG ER TABLET PO SCH (09:01)
[2021-10-25] MEDS: LORazepam 0.5 MG TABLET PO SCH ×3 (09:01→21:04)
[2021-10-25 09:43] VITALS: BP 96/56
[2021-10-25 16:24] VITALS: BP 102/77
[2021-10-25] MEDS: MELATONIN 5 MG TABLET PO SCH (21:04)
[2021-10-25] MEDS: MIRTAZAPINE 15 MG TABLET PO SCH (21:04)
[2021-10-26 08:00] VITALS: BP 101/62
[2021-10-26] MEDS: OMEGA-3/DHA/EPA/FISH OIL 1,000 MG CAPSULE PO SCH (08:29)
[2021-10-26] MEDS: OLANZapine 5 MG RAPDIS TABLET PO SCH ×3 (08:29→16:46)
[2021-10-26] MEDS: MULTIVITAMINS WITH MINERALS, THERAPEUTIC TABLET PO SCH (08:29)
[2021-10-26] MEDS: LORazepam 0.5 MG TABLET PO SCH ×3 (08:29→20:37)
[2021-10-26] MEDS: BuPROPion HCL XL 150 MG ER TABLET PO SCH (08:29)
[2021-10-26 16:46] VITALS: BP 103/60
[2021-10-26] MEDS: MELATONIN 5 MG TABLET PO SCH (20:37)
[2021-10-26] MEDS: MIRTAZAPINE 15 MG TABLET PO SCH (20:37)
[2021-10-27] MEDS: MULTIVITAMINS WITH MINERALS, THERAPEUTIC TABLET PO SCH (08:12)
[2021-10-27] MEDS: LORazepam 0.5 MG TABLET PO SCH ×3 (08:12→20:32)
[2021-10-27] MEDS: OMEGA-3/DHA/EPA/FISH OIL 1,000 MG CAPSULE PO SCH (08:12)
[2021-10-27] MEDS: OLANZapine 5 MG RAPDIS TABLET PO SCH ×3 (08:12→16:33)
[2021-10-27] MEDS: BuPROPion HCL XL 150 MG ER TABLET PO SCH (08:12)
[2021-10-27 10:13] VITALS: BP 109/72
[2021-10-27 16:04] VITALS: BP 97/65
[2021-10-27] MEDS: MIRTAZAPINE 15 MG TABLET PO SCH (20:32)
[2021-10-27] MEDS: MELATONIN 5 MG TABLET PO SCH (20:32)
[2021-10-28 08:15] VITALS: BP 101/63
[2021-10-28] MEDS: LORazepam 0.5 MG TABLET PO SCH ×3 (09:00→20:50)
[2021-10-28] MEDS: BuPROPion HCL XL 150 MG ER TABLET PO SCH (09:18)
[2021-10-28] MEDS: MULTIVITAMINS WITH MINERALS, THERAPEUTIC TABLET PO SCH (09:18)
[2021-10-28] MEDS: OMEGA-3/DHA/EPA/FISH OIL 1,000 MG CAPSULE PO SCH (09:18)
[2021-10-28] MEDS: OLANZapine 5 MG RAPDIS TABLET PO SCH ×3 (09:19→16:56)
[2021-10-28 15:13] LABS: COVID AG,FIA SOURCE NASOPHARYNGEAL
[2021-10-28 16:33] VITALS: BP 90/58
[2021-10-28] MEDS: MELATONIN 5 MG TABLET PO SCH (20:51)
[2021-10-28] MEDS: MIRTAZAPINE 15 MG TABLET PO SCH (20:51)
[2021-10-29 08:35] VITALS: BP 100/54
[2021-10-29] MEDS: OMEGA-3/DHA/EPA/FISH OIL 1,000 MG CAPSULE PO SCH (08:43)
[2021-10-29] MEDS: BuPROPion HCL XL 150 MG ER TABLET PO SCH (08:43)
[2021-10-29] MEDS: LORazepam 0.5 MG TABLET PO SCH ×3 (08:43→21:00)
[2021-10-29] MEDS: MULTIVITAMINS WITH MINERALS, THERAPEUTIC TABLET PO SCH (08:43)
[2021-10-29] MEDS: OLANZapine 5 MG RAPDIS TABLET PO SCH ×3 (08:44→16:59)
[2021-10-29 16:04] VITALS: BP 90/69
[2021-10-29 21:00] VITALS: BP 89/66
[2021-10-29] MEDS: MELATONIN 5 MG TABLET PO SCH (21:00)
[2021-10-29] MEDS: MIRTAZAPINE 15 MG TABLET PO SCH (21:33)
[2021-10-30] MEDS: LORazepam 0.5 MG TABLET PO SCH (09:00)
[2021-10-30] MEDS: OLANZapine 5 MG RAPDIS TABLET PO SCH ×3 (09:01→16:50)
[2021-10-30] MEDS: MULTIVITAMINS WITH MINERALS, THERAPEUTIC TABLET PO SCH (09:01)
[2021-10-30] MEDS: BuPROPion HCL XL 150 MG ER TABLET PO SCH (09:01)
[2021-10-30] MEDS: OMEGA-3/DHA/EPA/FISH OIL 1,000 MG CAPSULE PO SCH (09:01)
[2021-10-30 09:12] VITALS: BP 97/60
[2021-10-30 16:04] VITALS: BP 94/59
[2021-10-30] MEDS: LORazepam 1 MG TABLET PO SCH ×2 (16:49→20:52)
[2021-10-30 20:49] VITALS: BP 112/78
[2021-10-30] MEDS: MELATONIN 5 MG TABLET PO SCH (20:51)
[2021-10-30] MEDS: MIRTAZAPINE 15 MG TABLET PO SCH (20:51)
[2021-10-31 04:57] VITALS: BP 108/62
[2021-10-31 08:12] VITALS: BP 95/65
[2021-10-31] MEDS: BuPROPion HCL XL 150 MG ER TABLET PO SCH (08:43)
[2021-10-31] MEDS: LORazepam 1 MG TABLET PO SCH ×3 (08:44→21:06)
[2021-10-31] MEDS: OLANZapine 5 MG RAPDIS TABLET PO SCH ×3 (08:44→16:44)
[2021-10-31] MEDS: MULTIVITAMINS WITH MINERALS, THERAPEUTIC TABLET PO SCH (08:44)
[2021-10-31] MEDS: OMEGA-3/DHA/EPA/FISH OIL 1,000 MG CAPSULE PO SCH (08:44)
[2021-10-31 16:00] VITALS: BP 92/59
[2021-10-31 16:42] VITALS: BP 106/71
[2021-10-31 21:03] VITALS: BP 100/66
[2021-10-31] MEDS: MIRTAZAPINE 15 MG TABLET PO SCH (21:06)
[2021-10-31] MEDS: MELATONIN 5 MG TABLET PO SCH (21:06)
[2021-11-01 08:55] VITALS: BP 100/74
[2021-11-01] MEDS: MULTIVITAMINS WITH MINERALS, THERAPEUTIC TABLET PO SCH (09:20)
[2021-11-01] MEDS: LORazepam 1 MG TABLET PO SCH ×3 (09:20→20:45)
[2021-11-01] MEDS: OMEGA-3/DHA/EPA/FISH OIL 1,000 MG CAPSULE PO SCH (09:20)
[2021-11-01] MEDS: OLANZapine 5 MG RAPDIS TABLET PO SCH ×3 (09:20→16:59)
[2021-11-01] MEDS: BuPROPion HCL XL 150 MG ER TABLET PO SCH (09:20)
[2021-11-01 16:40] VITALS: BP 87/55
[2021-11-01] MEDS: MIRTAZAPINE 15 MG TABLET PO SCH (20:45)
[2021-11-01] MEDS: MELATONIN 5 MG TABLET PO SCH (20:45)
[2021-11-02] MEDS: LORazepam 1 MG TABLET PO SCH ×3 (08:43→20:32)
[2021-11-02] MEDS: BuPROPion HCL XL 150 MG ER TABLET PO SCH (08:43)
[2021-11-02] MEDS: MULTIVITAMINS WITH MINERALS, THERAPEUTIC TABLET PO SCH (08:43)
[2021-11-02] MEDS: OMEGA-3/DHA/EPA/FISH OIL 1,000 MG CAPSULE PO SCH (08:43)
[2021-11-02] MEDS: OLANZapine 5 MG RAPDIS TABLET PO SCH ×3 (08:43→16:35)
[2021-11-02 11:07] VITALS: BP 119/79
[2021-11-02 16:43] VITALS: BP 96/66
[2021-11-02] MEDS: MIRTAZAPINE 15 MG TABLET PO SCH (20:32)
[2021-11-02] MEDS: MELATONIN 5 MG TABLET PO SCH (20:32)
[2021-11-03 08:00] VITALS: BP 105/70
[2021-11-03] MEDS: BuPROPion HCL XL 150 MG ER TABLET PO SCH (08:42)
[2021-11-03] MEDS: MULTIVITAMINS WITH MINERALS, THERAPEUTIC TABLET PO SCH (08:42)
[2021-11-03] MEDS: OLANZapine 5 MG RAPDIS TABLET PO SCH ×3 (08:42→16:11)
[2021-11-03] MEDS: OMEGA-3/DHA/EPA/FISH OIL 1,000 MG CAPSULE PO SCH (08:42)
[2021-11-03] MEDS: LORazepam 1 MG TABLET PO SCH ×3 (09:00→20:44)
[2021-11-03 16:57] VITALS: BP 108/73
[2021-11-03] MEDS: MIRTAZAPINE 15 MG TABLET PO SCH (20:44)
[2021-11-03] MEDS: MELATONIN 5 MG TABLET PO SCH (20:49)
[2021-11-04 08:06] VITALS: BP 127/93
[2021-11-04] MEDS: OMEGA-3/DHA/EPA/FISH OIL 1,000 MG CAPSULE PO SCH (09:48)
[2021-11-04] MEDS: MULTIVITAMINS WITH MINERALS, THERAPEUTIC TABLET PO SCH (09:48)
[2021-11-04] MEDS: OLANZapine 5 MG RAPDIS TABLET PO SCH ×3 (09:49→17:03)
[2021-11-04] MEDS: BuPROPion HCL XL 150 MG ER TABLET PO SCH (09:49)
[2021-11-04] MEDS: LORazepam 1 MG TABLET PO SCH ×3 (09:50→20:27)
[2021-11-04 16:00] VITALS: BP 104/76
[2021-11-04] MEDS: MELATONIN 5 MG TABLET PO SCH (20:26)
[2021-11-04] MEDS: MIRTAZAPINE 15 MG TABLET PO SCH (20:27)
[2021-11-05 07:59] LABS: COVID AG,FIA SOURCE NASAL SWAB
[2021-11-05 08:19] VITALS: BP 100/63
[2021-11-05] MEDS: MULTIVITAMINS WITH MINERALS, THERAPEUTIC TABLET PO SCH (08:43)
[2021-11-05] MEDS: LORazepam 1 MG TABLET PO SCH ×3 (08:44→20:17)
[2021-11-05] MEDS: BuPROPion HCL XL 150 MG ER TABLET PO SCH (08:44)
[2021-11-05] MEDS: OMEGA-3/DHA/EPA/FISH OIL 1,000 MG CAPSULE PO SCH (08:44)
[2021-11-05] MEDS: OLANZapine 5 MG RAPDIS TABLET PO SCH ×3 (08:44→16:10)
[2021-11-05 16:41] VITALS: BP 102/66
[2021-11-05] MEDS: MIRTAZAPINE 15 MG TABLET PO SCH (20:17)
[2021-11-05] MEDS: MELATONIN 5 MG TABLET PO SCH (20:17)
[2021-11-06 08:45] VITALS: BP 117/75
[2021-11-06] MEDS: MULTIVITAMINS WITH MINERALS, THERAPEUTIC TABLET PO SCH (09:45)
[2021-11-06] MEDS: OLANZapine 5 MG RAPDIS TABLET PO SCH ×3 (09:45→16:07)
[2021-11-06] MEDS: OMEGA-3/DHA/EPA/FISH OIL 1,000 MG CAPSULE PO SCH (09:46)
[2021-11-06] MEDS: LORazepam 1 MG TABLET PO SCH ×3 (09:46→20:11)
[2021-11-06] MEDS: BuPROPion HCL XL 150 MG ER TABLET PO SCH (09:46)
[2021-11-06 16:00] VITALS: BP 107/67
[2021-11-06 17:13] VITALS: BP 107/67
[2021-11-06] MEDS: MIRTAZAPINE 15 MG TABLET PO SCH (20:11)
[2021-11-06] MEDS: MELATONIN 5 MG TABLET PO SCH (20:11)
[2021-11-07 08:29] VITALS: BP 97/64
[2021-11-07] MEDS: LORazepam 1 MG TABLET PO SCH ×3 (09:00→21:00)
[2021-11-07] MEDS: OMEGA-3/DHA/EPA/FISH OIL 1,000 MG CAPSULE PO SCH (09:02)
[2021-11-07] MEDS: MEGESTROL ACETATE 400 MG/10 ML SUSPENSION UDCUP PO SCH (09:02)
[2021-11-07] MEDS: BuPROPion HCL XL 150 MG ER TABLET PO SCH (09:02)
[2021-11-07] MEDS: MULTIVITAMINS WITH MINERALS, THERAPEUTIC TABLET PO SCH (09:02)
[2021-11-07] MEDS: OLANZapine 5 MG RAPDIS TABLET PO SCH ×3 (09:02→16:49)
[2021-11-07 16:27] VITALS: BP 109/79
[2021-11-07] MEDS: MIRTAZAPINE 15 MG TABLET PO SCH (21:04)
[2021-11-07] MEDS: MELATONIN 5 MG TABLET PO SCH (21:04)
[2021-11-07 21:05] VITALS: BP 96/63
[2021-11-08 08:05] VITALS: BP 101/68
[2021-11-08] MEDS: BuPROPion HCL XL 150 MG ER TABLET PO SCH (08:54)
[2021-11-08] MEDS: MEGESTROL ACETATE 400 MG/10 ML SUSPENSION UDCUP PO SCH (08:54)
[2021-11-08] MEDS: OLANZapine 5 MG RAPDIS TABLET PO SCH ×3 (08:54→16:58)
[2021-11-08] MEDS: MULTIVITAMINS WITH MINERALS, THERAPEUTIC TABLET PO SCH (08:54)
[2021-11-08] MEDS: OMEGA-3/DHA/EPA/FISH OIL 1,000 MG CAPSULE PO SCH (08:54)
[2021-11-08] MEDS: LORazepam 1 MG TABLET PO SCH ×3 (08:55→21:02)
[2021-11-08 16:26] VITALS: BP 96/70
[2021-11-08] MEDS: MIRTAZAPINE 15 MG TABLET PO SCH (21:02)
[2021-11-08] MEDS: MELATONIN 5 MG TABLET PO SCH (21:02)
[2021-11-09] MEDS: LORazepam 1 MG TABLET PO SCH ×3 (09:00→20:57)
[2021-11-09] MEDS: BuPROPion HCL XL 150 MG ER TABLET PO SCH (09:01)
[2021-11-09] MEDS: MULTIVITAMINS WITH MINERALS, THERAPEUTIC TABLET PO SCH (09:01)
[2021-11-09] MEDS: OLANZapine 5 MG RAPDIS TABLET PO SCH ×3 (09:01→16:59)
[2021-11-09] MEDS: OMEGA-3/DHA/EPA/FISH OIL 1,000 MG CAPSULE PO SCH (09:01)
[2021-11-09 09:29] VITALS: BP 116/82
[2021-11-09] MEDS: MEGESTROL ACETATE 400 MG/10 ML SUSPENSION UDCUP PO SCH (12:31)
[2021-11-09 16:11] VITALS: BP 104/56
[2021-11-09 20:52] VITALS: BP 104/64
[2021-11-09] MEDS: MIRTAZAPINE 15 MG TABLET PO SCH (20:56)
[2021-11-09] MEDS: MELATONIN 5 MG TABLET PO SCH (20:57)
[2021-11-10 08:08] VITALS: BP 94/63
[2021-11-10] MEDS: MULTIVITAMINS WITH MINERALS, THERAPEUTIC TABLET PO SCH (09:47)
[2021-11-10] MEDS: OMEGA-3/DHA/EPA/FISH OIL 1,000 MG CAPSULE PO SCH (09:47)
[2021-11-10] MEDS: BuPROPion HCL XL 150 MG ER TABLET PO SCH (09:47)
[2021-11-10] MEDS: LORazepam 1 MG TABLET PO SCH ×3 (09:48→20:35)
[2021-11-10] MEDS: OLANZapine 5 MG RAPDIS TABLET PO SCH ×3 (09:48→16:29)
[2021-11-10] MEDS: MEGESTROL ACETATE 400 MG/10 ML SUSPENSION UDCUP PO SCH (09:49)
[2021-11-10 16:00] VITALS: BP 100/66
[2021-11-10] MEDS: MIRTAZAPINE 15 MG TABLET PO SCH (20:35)
[2021-11-10] MEDS: MELATONIN 5 MG TABLET PO SCH (20:35)
[2021-11-11 08:05] VITALS: BP 129/84
[2021-11-11] MEDS: OLANZapine 5 MG RAPDIS TABLET PO SCH ×3 (09:47→17:01)
[2021-11-11] MEDS: BuPROPion HCL XL 150 MG ER TABLET PO SCH (09:47)
[2021-11-11] MEDS: MULTIVITAMINS WITH MINERALS, THERAPEUTIC TABLET PO SCH (09:47)
[2021-11-11] MEDS: OMEGA-3/DHA/EPA/FISH OIL 1,000 MG CAPSULE PO SCH (09:47)
[2021-11-11] MEDS: MEGESTROL ACETATE 400 MG/10 ML SUSPENSION UDCUP PO SCH (09:48)
[2021-11-11] MEDS: LORazepam 1 MG TABLET PO SCH ×3 (09:48→21:00)
[2021-11-11 16:11] VITALS: BP 99/68
[2021-11-11] MEDS: MELATONIN 5 MG TABLET PO SCH (21:11)
[2021-11-11] MEDS: MIRTAZAPINE 15 MG TABLET PO SCH (21:11)
[2021-11-11 21:16] LABS: POTASSIUM 4.2 mmol/L (3.5-5.1)
[2021-11-12 07:43] VITALS: BP 114/80
[2021-11-12] MEDS: MEGESTROL ACETATE 400 MG/10 ML SUSPENSION UDCUP PO SCH (09:00)
[2021-11-12] MEDS: OLANZapine 5 MG RAPDIS TABLET PO SCH ×3 (09:01→16:02)
[2021-11-12] MEDS: MULTIVITAMINS WITH MINERALS, THERAPEUTIC TABLET PO SCH (09:02)
[2021-11-12] MEDS: LORazepam 1 MG TABLET PO SCH ×3 (09:02→20:37)
[2021-11-12] MEDS: BuPROPion HCL XL 150 MG ER TABLET PO SCH (09:02)
[2021-11-12] MEDS: OMEGA-3/DHA/EPA/FISH OIL 1,000 MG CAPSULE PO SCH (09:02)
[2021-11-12 09:03] VITALS: BP 114/80
[2021-11-12 13:52] LABS: COVID AG,FIA SOURCE NASOPHARYNGEAL
[2021-11-12 16:58] VITALS: BP 99/70
[2021-11-12] MEDS: MIRTAZAPINE 15 MG TABLET PO SCH (20:36)
[2021-11-12] MEDS: MELATONIN 5 MG TABLET PO SCH (20:37)
[2021-11-13] MEDS: LORazepam 1 MG TABLET PO SCH ×3 (09:00→20:58)
[2021-11-13] MEDS: MEGESTROL ACETATE 400 MG/10 ML SUSPENSION UDCUP PO SCH (09:05)
[2021-11-13] MEDS: OMEGA-3/DHA/EPA/FISH OIL 1,000 MG CAPSULE PO SCH (09:05)
[2021-11-13] MEDS: MULTIVITAMINS WITH MINERALS, THERAPEUTIC TABLET PO SCH (09:05)
[2021-11-13] MEDS: OLANZapine 5 MG RAPDIS TABLET PO SCH ×3 (09:05→16:39)
[2021-11-13] MEDS: BuPROPion HCL XL 150 MG ER TABLET PO SCH (09:05)
[2021-11-13 09:49] VITALS: BP 82/51
[2021-11-13 16:18] VITALS: BP 114/77
[2021-11-13 20:56] VITALS: BP 100/66
[2021-11-13] MEDS: MELATONIN 5 MG TABLET PO SCH (20:58)
[2021-11-13] MEDS: MIRTAZAPINE 15 MG TABLET PO SCH (20:58)
[2021-11-14 01:53] VITALS: BP 144/89
[2021-11-14] MEDS: BuPROPion HCL XL 150 MG ER TABLET PO SCH (08:59)
[2021-11-14] MEDS: OMEGA-3/DHA/EPA/FISH OIL 1,000 MG CAPSULE PO SCH (08:59)
[2021-11-14] MEDS: OLANZapine 5 MG RAPDIS TABLET PO SCH ×3 (08:59→16:37)
[2021-11-14] MEDS: LORazepam 1 MG TABLET PO SCH ×3 (08:59→21:03)
[2021-11-14] MEDS: MULTIVITAMINS WITH MINERALS, THERAPEUTIC TABLET PO SCH (08:59)
[2021-11-14 09:00] VITALS: BP 123/83
[2021-11-14] MEDS: MEGESTROL ACETATE 400 MG/10 ML SUSPENSION UDCUP PO SCH (09:00)
[2021-11-14 16:46] VITALS: BP 103/68
[2021-11-14 20:56] VITALS: BP 107/70
[2021-11-14] MEDS: MIRTAZAPINE 15 MG TABLET PO SCH (21:03)
[2021-11-14] MEDS: MELATONIN 5 MG TABLET PO SCH (21:03)
[2021-11-15 08:05] VITALS: BP 122/79
[2021-11-15] MEDS: MEGESTROL ACETATE 400 MG/10 ML SUSPENSION UDCUP PO SCH (09:01)
[2021-11-15] MEDS: MULTIVITAMINS WITH MINERALS, THERAPEUTIC TABLET PO SCH (09:02)
[2021-11-15] MEDS: OMEGA-3/DHA/EPA/FISH OIL 1,000 MG CAPSULE PO SCH (09:02)
[2021-11-15] MEDS: OLANZapine 5 MG RAPDIS TABLET PO SCH ×3 (09:02→16:54)
[2021-11-15] MEDS: BuPROPion HCL XL 150 MG ER TABLET PO SCH (09:02)
[2021-11-15] MEDS: LORazepam 1 MG TABLET PO SCH ×3 (09:04→20:58)
[2021-11-15 16:09] VITALS: BP 104/70
[2021-11-15 20:55] VITALS: BP 100/68
[2021-11-15] MEDS: MIRTAZAPINE 15 MG TABLET PO SCH (20:59)
[2021-11-15] MEDS: MELATONIN 5 MG TABLET PO SCH (20:59)
[2021-11-16 08:12] VITALS: BP 100/67
[2021-11-16] MEDS: LORazepam 1 MG TABLET PO SCH ×3 (09:00→20:21)
[2021-11-16] MEDS: MEGESTROL ACETATE 400 MG/10 ML SUSPENSION UDCUP PO SCH (09:17)
[2021-11-16] MEDS: OMEGA-3/DHA/EPA/FISH OIL 1,000 MG CAPSULE PO SCH (09:18)
[2021-11-16] MEDS: OLANZapine 5 MG RAPDIS TABLET PO SCH ×3 (09:18→16:12)
[2021-11-16] MEDS: BuPROPion HCL XL 150 MG ER TABLET PO SCH (09:18)
[2021-11-16] MEDS: MULTIVITAMINS WITH MINERALS, THERAPEUTIC TABLET PO SCH (09:18)
[2021-11-16 16:10] VITALS: BP 99/65
[2021-11-16] MEDS: MELATONIN 5 MG TABLET PO SCH (20:21)
[2021-11-16] MEDS: MIRTAZAPINE 15 MG TABLET PO SCH (20:21)
[2021-11-17 08:00] VITALS: BP 114/79
[2021-11-17] MEDS: MULTIVITAMINS WITH MINERALS, THERAPEUTIC TABLET PO SCH (08:50)
[2021-11-17] MEDS: MEGESTROL ACETATE 400 MG/10 ML SUSPENSION UDCUP PO SCH (08:50)
[2021-11-17] MEDS: OMEGA-3/DHA/EPA/FISH OIL 1,000 MG CAPSULE PO SCH (08:50)
[2021-11-17] MEDS: BuPROPion HCL XL 150 MG ER TABLET PO SCH (08:50)
[2021-11-17] MEDS: OLANZapine 5 MG RAPDIS TABLET PO SCH ×3 (08:50→16:49)
[2021-11-17] MEDS: LORazepam 1 MG TABLET PO SCH ×3 (08:53→20:30)
[2021-11-17 16:23] VITALS: BP_SYST 104; BP_SYST 90; BP_DIAS 60; BP_DIAS 71
[2021-11-17] MEDS: MELATONIN 5 MG TABLET PO SCH (20:29)
[2021-11-17] MEDS: MIRTAZAPINE 15 MG TABLET PO SCH (20:30)
[2021-11-18] MEDS: MULTIVITAMINS WITH MINERALS, THERAPEUTIC TABLET PO SCH (08:22)
[2021-11-18] MEDS: MEGESTROL ACETATE 400 MG/10 ML SUSPENSION UDCUP PO SCH (08:22)
[2021-11-18] MEDS: BuPROPion HCL XL 150 MG ER TABLET PO SCH (08:22)
[2021-11-18] MEDS: LORazepam 1 MG TABLET PO SCH ×3 (08:23→20:49)
[2021-11-18] MEDS: OMEGA-3/DHA/EPA/FISH OIL 1,000 MG CAPSULE PO SCH (08:23)
[2021-11-18] MEDS: OLANZapine 5 MG RAPDIS TABLET PO SCH ×3 (08:24→16:25)
[2021-11-18 08:32] VITALS: BP 98/68
[2021-11-18 16:33] VITALS: BP 98/65
[2021-11-18 20:46] VITALS: BP 101/69
[2021-11-18] MEDS: MIRTAZAPINE 15 MG TABLET PO SCH (20:49)
[2021-11-18] MEDS: MELATONIN 5 MG TABLET PO SCH (20:49)
[2021-11-19 08:00] VITALS: BP 120/80
[2021-11-19 08:01] LABS: COVID AG,FIA SOURCE NASAL SWAB
[2021-11-19] MEDS: MULTIVITAMINS WITH MINERALS, THERAPEUTIC TABLET PO SCH (09:25)
[2021-11-19] MEDS: OLANZapine 5 MG RAPDIS TABLET PO SCH ×3 (09:25→16:41)
[2021-11-19] MEDS: OMEGA-3/DHA/EPA/FISH OIL 1,000 MG CAPSULE PO SCH (09:25)
[2021-11-19] MEDS: BuPROPion HCL XL 150 MG ER TABLET PO SCH (09:26)
[2021-11-19] MEDS: LORazepam 1 MG TABLET PO SCH ×3 (09:26→20:39)
[2021-11-19] MEDS: MEGESTROL ACETATE 400 MG/10 ML SUSPENSION UDCUP PO SCH (09:27)
[2021-11-19 16:10] VITALS: BP 100/67
[2021-11-19] MEDS: MELATONIN 5 MG TABLET PO SCH (20:39)
[2021-11-19] MEDS: MIRTAZAPINE 15 MG TABLET PO SCH (20:39)
[2021-11-20] MEDS: OLANZapine 5 MG RAPDIS TABLET PO SCH ×3 (09:47→16:09)
[2021-11-20] MEDS: BuPROPion HCL XL 150 MG ER TABLET PO SCH (09:47)
[2021-11-20] MEDS: OMEGA-3/DHA/EPA/FISH OIL 1,000 MG CAPSULE PO SCH (09:47)
[2021-11-20] MEDS: MULTIVITAMINS WITH MINERALS, THERAPEUTIC TABLET PO SCH (09:47)
[2021-11-20] MEDS: MEGESTROL ACETATE 400 MG/10 ML SUSPENSION UDCUP PO SCH (09:48)
[2021-11-20] MEDS: LORazepam 1 MG TABLET PO SCH (09:54)
[2021-11-20 10:19] VITALS: BP 146/89
[2021-11-20] MEDS: LORazepam 0.5 MG TABLET PO SCH ×2 (16:09→20:14)
[2021-11-20 16:28] VITALS: BP 114/76
[2021-11-20] MEDS: MELATONIN 5 MG TABLET PO SCH (20:14)
[2021-11-20] MEDS: MIRTAZAPINE 15 MG TABLET PO SCH (20:14)
[2021-11-21] MEDS: OLANZapine 5 MG RAPDIS TABLET PO SCH ×3 (08:37→17:51)
[2021-11-21] MEDS: MEGESTROL ACETATE 400 MG/10 ML SUSPENSION UDCUP PO SCH (08:37)
[2021-11-21] MEDS: OMEGA-3/DHA/EPA/FISH OIL 1,000 MG CAPSULE PO SCH (08:37)
[2021-11-21] MEDS: MULTIVITAMINS WITH MINERALS, THERAPEUTIC TABLET PO SCH (08:37)
[2021-11-21] MEDS: LORazepam 0.5 MG TABLET PO SCH ×3 (08:38→20:52)
[2021-11-21 08:53] VITALS: BP 107/67
[2021-11-21] MEDS: MAGNESIUM HYDROXIDE SUSPENSION 30 ML UDCUP PO PRN (14:30)
[2021-11-21 16:05] VITALS: BP 11/69
[2021-11-21] MEDS: MIRTAZAPINE 15 MG TABLET PO SCH (20:52)
[2021-11-21] MEDS: MELATONIN 5 MG TABLET PO SCH (20:52)
[2021-11-22] MEDS: OLANZapine 5 MG RAPDIS TABLET PO SCH ×3 (08:52→17:10)
[2021-11-22] MEDS: MULTIVITAMINS WITH MINERALS, THERAPEUTIC TABLET PO SCH (08:52)
[2021-11-22] MEDS: OMEGA-3/DHA/EPA/FISH OIL 1,000 MG CAPSULE PO SCH (08:52)
[2021-11-22] MEDS: MEGESTROL ACETATE 400 MG/10 ML SUSPENSION UDCUP PO SCH (08:52)
[2021-11-22] MEDS: LORazepam 0.5 MG TABLET PO SCH ×3 (09:00→20:40)
[2021-11-22 09:54] VITALS: BP 102/68
[2021-11-22 16:31] VITALS: BP 97/65
[2021-11-22] MEDS: MELATONIN 5 MG TABLET PO SCH (20:40)
[2021-11-22] MEDS: MIRTAZAPINE 15 MG TABLET PO SCH (20:41)
[2021-11-23 01:00] VITALS: BP 100/80
[2021-11-23] MEDS: LORazepam 0.5 MG TABLET PO SCH ×3 (08:43→21:00)
[2021-11-23] MEDS: OLANZapine 5 MG RAPDIS TABLET PO SCH ×3 (08:43→16:34)
[2021-11-23] MEDS: OMEGA-3/DHA/EPA/FISH OIL 1,000 MG CAPSULE PO SCH (08:43)
[2021-11-23] MEDS: MEGESTROL ACETATE 400 MG/10 ML SUSPENSION UDCUP PO SCH (08:45)
[2021-11-23] MEDS: MULTIVITAMINS WITH MINERALS, THERAPEUTIC TABLET PO SCH (08:45)
[2021-11-23 10:31] VITALS: BP 125/77
[2021-11-23 16:38] VITALS: BP 110/78
[2021-11-23] MEDS: MIRTAZAPINE 15 MG TABLET PO SCH (21:00)
[2021-11-23] MEDS: MELATONIN 5 MG TABLET PO SCH (21:00)
[2021-11-24] MEDS: OMEGA-3/DHA/EPA/FISH OIL 1,000 MG CAPSULE PO SCH (08:11)
[2021-11-24] MEDS: MEGESTROL ACETATE 400 MG/10 ML SUSPENSION UDCUP PO SCH (08:11)
[2021-11-24] MEDS: OLANZapine 5 MG RAPDIS TABLET PO SCH ×3 (08:11→16:19)
[2021-11-24] MEDS: MULTIVITAMINS WITH MINERALS, THERAPEUTIC TABLET PO SCH (08:11)
[2021-11-24] MEDS: LORazepam 0.5 MG TABLET PO SCH ×3 (08:12→20:13)
[2021-11-24 08:30] VITALS: BP 98/54
[2021-11-24 16:09] VITALS: BP 118/81
[2021-11-24] MEDS: MELATONIN 5 MG TABLET PO SCH (20:13)
[2021-11-24] MEDS: MIRTAZAPINE 15 MG TABLET PO SCH (20:13)
[2021-11-25] MEDS: MULTIVITAMINS WITH MINERALS, THERAPEUTIC TABLET PO SCH (08:55)
[2021-11-25] MEDS: OMEGA-3/DHA/EPA/FISH OIL 1,000 MG CAPSULE PO SCH (08:55)
[2021-11-25] MEDS: MEGESTROL ACETATE 400 MG/10 ML SUSPENSION UDCUP PO SCH (08:56)
[2021-11-25] MEDS: OLANZapine 5 MG RAPDIS TABLET PO SCH ×3 (08:56→16:37)
[2021-11-25 09:00] VITALS: BP 103/73
[2021-11-25] MEDS: LORazepam 0.5 MG TABLET PO SCH ×3 (09:00→21:10)
[2021-11-25 17:05] VITALS: BP 120/80
[2021-11-25] MEDS: MELATONIN 5 MG TABLET PO SCH (21:10)
[2021-11-25] MEDS: MIRTAZAPINE 15 MG TABLET PO SCH (21:10)
[2021-11-26 08:53] VITALS: BP 117/73
[2021-11-26] MEDS: MULTIVITAMINS WITH MINERALS, THERAPEUTIC TABLET PO SCH (09:24)
[2021-11-26] MEDS: OMEGA-3/DHA/EPA/FISH OIL 1,000 MG CAPSULE PO SCH (09:24)
[2021-11-26] MEDS: MEGESTROL ACETATE 400 MG/10 ML SUSPENSION UDCUP PO SCH (09:24)
[2021-11-26] MEDS: OLANZapine 5 MG RAPDIS TABLET PO SCH ×3 (09:24→17:37)
[2021-11-26] MEDS: LORazepam 0.5 MG TABLET PO SCH ×3 (09:26→21:32)
[2021-11-26 12:51] LABS: COVID AG,FIA SOURCE NASAL SWAB
[2021-11-26 16:11] VITALS: BP 125/84
[2021-11-26] MEDS: MELATONIN 5 MG TABLET PO SCH (21:32)
[2021-11-26] MEDS: MIRTAZAPINE 15 MG TABLET PO SCH (21:32)
[2021-11-27 08:43] VITALS: BP 114/76
[2021-11-27] MEDS: OMEGA-3/DHA/EPA/FISH OIL 1,000 MG CAPSULE PO SCH (08:45)
[2021-11-27] MEDS: MEGESTROL ACETATE 400 MG/10 ML SUSPENSION UDCUP PO SCH (08:45)
[2021-11-27] MEDS: MULTIVITAMINS WITH MINERALS, THERAPEUTIC TABLET PO SCH (08:45)
[2021-11-27] MEDS: OLANZapine 5 MG RAPDIS TABLET PO SCH ×3 (08:46→17:36)
[2021-11-27] MEDS: LORazepam 0.5 MG TABLET PO SCH ×3 (08:47→21:17)
[2021-11-27 16:18] VITALS: BP 128/86
[2021-11-27] MEDS: MIRTAZAPINE 15 MG TABLET PO SCH (21:17)
[2021-11-27] MEDS: MELATONIN 5 MG TABLET PO SCH (21:17)
[2021-11-28 05:11] VITALS: BP 115/70
[2021-11-28 08:11] VITALS: BP 120/83
[2021-11-28] MEDS: OLANZapine 5 MG RAPDIS TABLET PO SCH ×3 (09:08→16:12)
[2021-11-28] MEDS: LORazepam 0.5 MG TABLET PO SCH ×3 (09:13→20:32)
[2021-11-28] MEDS: MULTIVITAMINS WITH MINERALS, THERAPEUTIC TABLET PO SCH (09:13)
[2021-11-28] MEDS: OMEGA-3/DHA/EPA/FISH OIL 1,000 MG CAPSULE PO SCH (09:13)
[2021-11-28] MEDS: MEGESTROL ACETATE 400 MG/10 ML SUSPENSION UDCUP PO SCH (09:14)
[2021-11-28 12:28] VITALS: BP 120/83
[2021-11-28 16:28] VITALS: BP 118/74
[2021-11-28] MEDS: MELATONIN 5 MG TABLET PO SCH (20:32)
[2021-11-28] MEDS: MIRTAZAPINE 15 MG TABLET PO SCH (20:32)
[2021-11-29] MEDS: MULTIVITAMINS WITH MINERALS, THERAPEUTIC TABLET PO SCH (08:11)
[2021-11-29] MEDS: LORazepam 0.5 MG TABLET PO SCH ×3 (08:11→21:00)
[2021-11-29] MEDS: OLANZapine 5 MG RAPDIS TABLET PO SCH ×3 (08:11→16:34)
[2021-11-29] MEDS: OMEGA-3/DHA/EPA/FISH OIL 1,000 MG CAPSULE PO SCH (08:11)
[2021-11-29] MEDS: MEGESTROL ACETATE 400 MG/10 ML SUSPENSION UDCUP PO SCH (08:12)
[2021-11-29 09:24] VITALS: BP 105/74
[2021-11-29 16:08] VITALS: BP 130/88
[2021-11-29] MEDS: MELATONIN 5 MG TABLET PO SCH (21:06)
[2021-11-29] MEDS: MIRTAZAPINE 15 MG TABLET PO SCH (21:06)
[2021-11-30] MEDS: OMEGA-3/DHA/EPA/FISH OIL 1,000 MG CAPSULE PO SCH (08:18)
[2021-11-30] MEDS: MULTIVITAMINS WITH MINERALS, THERAPEUTIC TABLET PO SCH (08:18)
[2021-11-30] MEDS: MEGESTROL ACETATE 400 MG/10 ML SUSPENSION UDCUP PO SCH (08:18)
[2021-11-30] MEDS: OLANZapine 5 MG RAPDIS TABLET PO SCH ×3 (08:19→16:37)
[2021-11-30] MEDS: LORazepam 0.5 MG TABLET PO SCH ×3 (08:19→21:00)
[2021-11-30 08:34] VITALS: BP 116/64
[2021-11-30 16:00] VITALS: BP 112/83
[2021-11-30] MEDS: MELATONIN 5 MG TABLET PO SCH (20:21)
[2021-11-30] MEDS: MIRTAZAPINE 15 MG TABLET PO SCH (20:21)
[2021-12-01] MEDS: OMEGA-3/DHA/EPA/FISH OIL 1,000 MG CAPSULE PO SCH (08:27)
[2021-12-01] MEDS: MULTIVITAMINS WITH MINERALS, THERAPEUTIC TABLET PO SCH (08:27)
[2021-12-01] MEDS: OLANZapine 5 MG RAPDIS TABLET PO SCH ×3 (08:27→16:59)
[2021-12-01] MEDS: MEGESTROL ACETATE 400 MG/10 ML SUSPENSION UDCUP PO SCH (08:28)
[2021-12-01] MEDS: LORazepam 0.5 MG TABLET PO SCH ×3 (08:29→21:11)
[2021-12-01 08:58] VITALS: BP 108/67
[2021-12-01 16:32] VITALS: BP 114/78
[2021-12-01] MEDS: MIRTAZAPINE 15 MG TABLET PO SCH (21:11)
[2021-12-01] MEDS: MELATONIN 5 MG TABLET PO SCH (21:11)
[2021-12-02] MEDS: MEGESTROL ACETATE 400 MG/10 ML SUSPENSION UDCUP PO SCH (08:33)
[2021-12-02] MEDS: LORazepam 0.5 MG TABLET PO SCH ×3 (08:34→20:35)
[2021-12-02] MEDS: OLANZapine 5 MG RAPDIS TABLET PO SCH ×3 (08:34→16:59)
[2021-12-02] MEDS: MULTIVITAMINS WITH MINERALS, THERAPEUTIC TABLET PO SCH (08:34)
[2021-12-02] MEDS: OMEGA-3/DHA/EPA/FISH OIL 1,000 MG CAPSULE PO SCH (08:34)
[2021-12-02 09:00] VITALS: BP 107/61
[2021-12-02 16:00] VITALS: BP 95/56
[2021-12-02] MEDS: MIRTAZAPINE 15 MG TABLET PO SCH (20:35)
[2021-12-02] MEDS: MELATONIN 5 MG TABLET PO SCH (20:35)
[2021-12-03 08:15] VITALS: BP 111/75
[2021-12-03] MEDS: OMEGA-3/DHA/EPA/FISH OIL 1,000 MG CAPSULE PO SCH (08:58)
[2021-12-03] MEDS: LORazepam 0.5 MG TABLET PO SCH ×3 (08:58→21:18)
[2021-12-03] MEDS: MULTIVITAMINS WITH MINERALS, THERAPEUTIC TABLET PO SCH (08:58)
[2021-12-03] MEDS: OLANZapine 5 MG RAPDIS TABLET PO SCH ×3 (08:58→16:29)
[2021-12-03] MEDS: MEGESTROL ACETATE 400 MG/10 ML SUSPENSION UDCUP PO SCH (08:58)
[2021-12-03 16:00] VITALS: BP 97/59
[2021-12-03 16:25] VITALS: BP 105/78
[2021-12-03 20:14] LABS: COVID AG,FIA SOURCE NASAL SWAB
[2021-12-03] MEDS: MIRTAZAPINE 15 MG TABLET PO SCH (20:25)
[2021-12-03] MEDS: MELATONIN 5 MG TABLET PO SCH (20:25)
[2021-12-04 08:00] VITALS: BP 100/69
[2021-12-04] MEDS: OLANZapine 5 MG RAPDIS TABLET PO SCH ×3 (08:41→17:09)
[2021-12-04] MEDS: MULTIVITAMINS WITH MINERALS, THERAPEUTIC TABLET PO SCH (08:41)
[2021-12-04] MEDS: LORazepam 0.5 MG TABLET PO SCH ×3 (08:41→20:53)
[2021-12-04] MEDS: MEGESTROL ACETATE 400 MG/10 ML SUSPENSION UDCUP PO SCH (08:42)
[2021-12-04] MEDS: OMEGA-3/DHA/EPA/FISH OIL 1,000 MG CAPSULE PO SCH (08:42)
[2021-12-04 17:14] VITALS: BP 109/71
[2021-12-04] MEDS: MELATONIN 5 MG TABLET PO SCH (20:53)
[2021-12-04] MEDS: MIRTAZAPINE 15 MG TABLET PO SCH (20:53)
[2021-12-05 04:10] VITALS: BP 108/80
[2021-12-05] MEDS: OLANZapine 5 MG RAPDIS TABLET PO SCH ×3 (09:36→16:46)
[2021-12-05] MEDS: OMEGA-3/DHA/EPA/FISH OIL 1,000 MG CAPSULE PO SCH (09:36)
[2021-12-05] MEDS: LORazepam 0.5 MG TABLET PO SCH ×3 (09:36→21:10)
[2021-12-05] MEDS: MULTIVITAMINS WITH MINERALS, THERAPEUTIC TABLET PO SCH (09:36)
[2021-12-05] MEDS: MEGESTROL ACETATE 400 MG/10 ML SUSPENSION UDCUP PO SCH (09:37)
[2021-12-05 10:28] VITALS: BP 119/97
[2021-12-05 16:49] VITALS: BP 100/79
[2021-12-05] MEDS: MIRTAZAPINE 15 MG TABLET PO SCH (21:10)
[2021-12-05] MEDS: MELATONIN 5 MG TABLET PO SCH (21:10)
[2021-12-06 08:01] VITALS: BP 110/75
[2021-12-06] MEDS: OMEGA-3/DHA/EPA/FISH OIL 1,000 MG CAPSULE PO SCH (08:45)
[2021-12-06] MEDS: LORazepam 0.5 MG TABLET PO SCH ×2 (08:46→16:30)
[2021-12-06] MEDS: MEGESTROL ACETATE 400 MG/10 ML SUSPENSION UDCUP PO SCH (08:46)
[2021-12-06] MEDS: OLANZapine 5 MG RAPDIS TABLET PO SCH ×3 (08:46→16:30)
[2021-12-06] MEDS: MULTIVITAMINS WITH MINERALS, THERAPEUTIC TABLET PO SCH (08:46)
[2021-12-06 16:04] VITALS: BP 100/69
[2021-12-06] MEDS: MIRTAZAPINE 15 MG TABLET PO SCH (20:39)
[2021-12-06] MEDS: MELATONIN 5 MG TABLET PO SCH (20:39)
[2021-12-07] MEDS: MULTIVITAMINS WITH MINERALS, THERAPEUTIC TABLET PO SCH (09:03)
[2021-12-07] MEDS: OMEGA-3/DHA/EPA/FISH OIL 1,000 MG CAPSULE PO SCH (09:03)
[2021-12-07] MEDS: OLANZapine 5 MG RAPDIS TABLET PO SCH ×3 (09:03→16:32)
[2021-12-07] MEDS: MEGESTROL ACETATE 400 MG/10 ML SUSPENSION UDCUP PO SCH (09:03)
[2021-12-07] MEDS: LORazepam 0.5 MG TABLET PO SCH ×2 (09:04→16:32)
[2021-12-07 10:24] VITALS: BP 135/95
[2021-12-07 16:00] VITALS: BP 107/59
[2021-12-07] MEDS: MELATONIN 5 MG TABLET PO SCH (20:23)
[2021-12-07] MEDS: MIRTAZAPINE 15 MG TABLET PO SCH (20:23)
[2021-12-08] MEDS: MULTIVITAMINS WITH MINERALS, THERAPEUTIC TABLET PO SCH (08:08)
[2021-12-08] MEDS: OMEGA-3/DHA/EPA/FISH OIL 1,000 MG CAPSULE PO SCH (08:08)
[2021-12-08] MEDS: MEGESTROL ACETATE 400 MG/10 ML SUSPENSION UDCUP PO SCH (08:09)
[2021-12-08] MEDS: OLANZapine 5 MG RAPDIS TABLET PO SCH ×3 (08:09→16:18)
[2021-12-08] MEDS: LORazepam 0.5 MG TABLET PO SCH ×2 (08:09→16:18)
[2021-12-08 09:50] VITALS: BP 120/84
[2021-12-08 16:00] VITALS: BP 96/60
[2021-12-08] MEDS: MELATONIN 5 MG TABLET PO SCH (20:19)
[2021-12-08] MEDS: MIRTAZAPINE 15 MG TABLET PO SCH (20:19)
[2021-12-09 09:22] VITALS: BP 110/74
[2021-12-09] MEDS: MULTIVITAMINS WITH MINERALS, THERAPEUTIC TABLET PO SCH (09:27)
[2021-12-09] MEDS: MEGESTROL ACETATE 400 MG/10 ML SUSPENSION UDCUP PO SCH (09:27)
[2021-12-09] MEDS: OMEGA-3/DHA/EPA/FISH OIL 1,000 MG CAPSULE PO SCH (09:28)
[2021-12-09] MEDS: LORazepam 0.5 MG TABLET PO SCH ×2 (09:28→16:36)
[2021-12-09] MEDS: OLANZapine 5 MG RAPDIS TABLET PO SCH ×3 (09:28→16:36)
[2021-12-09 16:00] VITALS: BP 115/75
[2021-12-09] MEDS: MIRTAZAPINE 15 MG TABLET PO SCH (20:22)
[2021-12-09] MEDS: MELATONIN 5 MG TABLET PO SCH (20:22)
[2021-12-10 08:35] VITALS: BP 117/80
[2021-12-10] MEDS: OMEGA-3/DHA/EPA/FISH OIL 1,000 MG CAPSULE PO SCH (09:34)
[2021-12-10] MEDS: MEGESTROL ACETATE 400 MG/10 ML SUSPENSION UDCUP PO SCH (09:34)
[2021-12-10] MEDS: OLANZapine 5 MG RAPDIS TABLET PO SCH ×3 (09:34→17:26)
[2021-12-10] MEDS: MULTIVITAMINS WITH MINERALS, THERAPEUTIC TABLET PO SCH (09:34)
[2021-12-10] MEDS: LORazepam 0.5 MG TABLET PO SCH ×2 (09:38→17:24)
[2021-12-10 16:07] VITALS: BP 90/55
[2021-12-10] MEDS: MIRTAZAPINE 15 MG TABLET PO SCH (21:09)
[2021-12-10] MEDS: MELATONIN 5 MG TABLET PO SCH (21:09)
[2021-12-11 09:00] VITALS: BP 107/72
[2021-12-11] MEDS: LORazepam 0.5 MG TABLET PO SCH ×2 (09:00→17:23)
[2021-12-11] MEDS: MULTIVITAMINS WITH MINERALS, THERAPEUTIC TABLET PO SCH (09:03)
[2021-12-11] MEDS: MEGESTROL ACETATE 400 MG/10 ML SUSPENSION UDCUP PO SCH (09:03)
[2021-12-11] MEDS: OMEGA-3/DHA/EPA/FISH OIL 1,000 MG CAPSULE PO SCH (09:03)
[2021-12-11] MEDS: OLANZapine 5 MG RAPDIS TABLET PO SCH ×3 (09:03→17:24)
[2021-12-11 15:02] LABS: COVID AG,FIA SOURCE NASOPHARYNGEAL
[2021-12-11 18:12] VITALS: BP 114/75
[2021-12-11] MEDS: MELATONIN 5 MG TABLET PO SCH (21:23)
[2021-12-11] MEDS: MIRTAZAPINE 15 MG TABLET PO SCH (21:23)
[2021-12-11 23:47] LABS: COVID AG,FIA SOURCE NASAL SWAB
[2021-12-12 08:00] VITALS: BP 149/85
[2021-12-12] MEDS: LORazepam 0.5 MG TABLET PO SCH ×2 (08:42→17:07)
[2021-12-12] MEDS: OLANZapine 5 MG RAPDIS TABLET PO SCH ×3 (08:42→17:07)
[2021-12-12] MEDS: OMEGA-3/DHA/EPA/FISH OIL 1,000 MG CAPSULE PO SCH (08:42)
[2021-12-12] MEDS: MULTIVITAMINS WITH MINERALS, THERAPEUTIC TABLET PO SCH (08:42)
[2021-12-12] MEDS: MEGESTROL ACETATE 400 MG/10 ML SUSPENSION UDCUP PO SCH (08:43)
[2021-12-12 16:29] VITALS: BP 95/59
[2021-12-12] MEDS: MIRTAZAPINE 15 MG TABLET PO SCH (20:50)
[2021-12-12] MEDS: MELATONIN 5 MG TABLET PO SCH (20:50)
[2021-12-13 04:50] VITALS: BP 115/65
[2021-12-13 08:00] VITALS: BP 117/80
[2021-12-13] MEDS: OMEGA-3/DHA/EPA/FISH OIL 1,000 MG CAPSULE PO SCH (08:05)
[2021-12-13] MEDS: OLANZapine 5 MG RAPDIS TABLET PO SCH ×3 (08:05→17:04)
[2021-12-13] MEDS: LORazepam 0.5 MG TABLET PO SCH (08:05)
[2021-12-13] MEDS: MULTIVITAMINS WITH MINERALS, THERAPEUTIC TABLET PO SCH (08:05)
[2021-12-13] MEDS: MEGESTROL ACETATE 400 MG/10 ML SUSPENSION UDCUP PO SCH (08:06)
[2021-12-13] MEDS ORDERED: LORazepam 0.5 MG TABLET PO PRN (11:00)
[2021-12-13 17:08] VITALS: BP 128/65
[2021-12-13] MEDS: MIRTAZAPINE 15 MG TABLET PO SCH (20:39)
[2021-12-13] MEDS: MELATONIN 5 MG TABLET PO SCH (20:39)
[2021-12-14] MEDS: MULTIVITAMINS WITH MINERALS, THERAPEUTIC TABLET PO SCH (09:05)
[2021-12-14] MEDS: OMEGA-3/DHA/EPA/FISH OIL 1,000 MG CAPSULE PO SCH (09:05)
[2021-12-14] MEDS: MEGESTROL ACETATE 400 MG/10 ML SUSPENSION UDCUP PO SCH (09:05)
[2021-12-14] MEDS: OLANZapine 5 MG RAPDIS TABLET PO SCH ×3 (09:06→16:59)
[2021-12-14 10:40] VITALS: BP 115/66
[2021-12-14] MEDS: MAGNESIUM HYDROXIDE SUSPENSION 30 ML UDCUP PO PRN (17:06)
[2021-12-14 17:14] VITALS: BP 124/73
[2021-12-14] MEDS: MIRTAZAPINE 15 MG TABLET PO SCH (20:41)
[2021-12-14] MEDS: MELATONIN 5 MG TABLET PO SCH (20:41)
[2021-12-15 03:00] VITALS: BP 109/66
[2021-12-15 08:00] VITALS: BP 120/82
[2021-12-15] MEDS: OMEGA-3/DHA/EPA/FISH OIL 1,000 MG CAPSULE PO SCH (08:09)
[2021-12-15] MEDS: MULTIVITAMINS WITH MINERALS, THERAPEUTIC TABLET PO SCH (08:09)
[2021-12-15] MEDS: OLANZapine 5 MG RAPDIS TABLET PO SCH ×3 (08:10→17:16)
[2021-12-15] MEDS: MEGESTROL ACETATE 400 MG/10 ML SUSPENSION UDCUP PO SCH (08:10)
[2021-12-15] MEDS: MAGNESIUM HYDROXIDE SUSPENSION 30 ML UDCUP PO PRN (14:21)
[2021-12-15 16:44] VITALS: BP 121/78
[2021-12-15] MEDS ORDERED: BISACODYL 5 MG EC TABLET PO PRN (18:45)
[2021-12-15] MEDS: MIRTAZAPINE 15 MG TABLET PO SCH (20:29)
[2021-12-15] MEDS: MELATONIN 5 MG TABLET PO SCH (20:29)
[2021-12-16 05:30] VITALS: BP 125/85
[2021-12-16 08:30] VITALS: BP 128/82
[2021-12-16] MEDS: MULTIVITAMINS WITH MINERALS, THERAPEUTIC TABLET PO SCH (09:06)
[2021-12-16] MEDS: MEGESTROL ACETATE 400 MG/10 ML SUSPENSION UDCUP PO SCH (09:06)
[2021-12-16] MEDS: OLANZapine 5 MG RAPDIS TABLET PO SCH ×3 (09:06→16:50)
[2021-12-16] MEDS: OMEGA-3/DHA/EPA/FISH OIL 1,000 MG CAPSULE PO SCH (09:06)
[2021-12-16] MEDS: MAGNESIUM HYDROXIDE SUSPENSION 30 ML UDCUP PO PRN (12:07)
[2021-12-16 16:53] VITALS: BP 103/82
[2021-12-16] MEDS: MELATONIN 5 MG TABLET PO SCH (20:08)
[2021-12-16] MEDS: MIRTAZAPINE 15 MG TABLET PO SCH (20:08)
[2021-12-17 00:30] VITALS: BP 107/77
[2021-12-17 08:06] VITALS: BP 108/68
[2021-12-17] MEDS: OLANZapine 5 MG RAPDIS TABLET PO SCH ×3 (08:28→16:14)
[2021-12-17] MEDS: MEGESTROL ACETATE 400 MG/10 ML SUSPENSION UDCUP PO SCH (08:28)
[2021-12-17] MEDS: MULTIVITAMINS WITH MINERALS, THERAPEUTIC TABLET PO SCH (08:28)
[2021-12-17] MEDS: OMEGA-3/DHA/EPA/FISH OIL 1,000 MG CAPSULE PO SCH (08:28)
[2021-12-17 16:52] VITALS: BP 94/66
[2021-12-17] MEDS: MIRTAZAPINE 15 MG TABLET PO SCH (20:25)
[2021-12-17] MEDS: MELATONIN 5 MG TABLET PO SCH (20:25)
[2021-12-18 04:04] VITALS: BP 110/80
[2021-12-18] MEDS: OMEGA-3/DHA/EPA/FISH OIL 1,000 MG CAPSULE PO SCH (08:34)
[2021-12-18] MEDS: MEGESTROL ACETATE 400 MG/10 ML SUSPENSION UDCUP PO SCH (08:34)
[2021-12-18] MEDS: OLANZapine 5 MG RAPDIS TABLET PO SCH ×3 (08:34→16:01)
[2021-12-18] MEDS: MULTIVITAMINS WITH MINERALS, THERAPEUTIC TABLET PO SCH (08:34)
[2021-12-18 09:23] VITALS: BP 102/71
[2021-12-18 16:30] VITALS: BP 111/83
[2021-12-18] MEDS: MELATONIN 5 MG TABLET PO SCH (20:10)
[2021-12-18] MEDS: MIRTAZAPINE 15 MG TABLET PO SCH (20:10)
[2021-12-19 02:44] VITALS: BP 107/77
[2021-12-19 05:19] LABS: COVID AG,FIA SOURCE NASAL SWAB
[2021-12-19 08:00] VITALS: BP 112/73
[2021-12-19] MEDS: OLANZapine 5 MG RAPDIS TABLET PO SCH ×4 (08:04→17:00)
[2021-12-19] MEDS: MULTIVITAMINS WITH MINERALS, THERAPEUTIC TABLET PO SCH (08:04)
[2021-12-19] MEDS: OMEGA-3/DHA/EPA/FISH OIL 1,000 MG CAPSULE PO SCH (08:04)
[2021-12-19] MEDS: MEGESTROL ACETATE 400 MG/10 ML SUSPENSION UDCUP PO SCH (08:05)
[2021-12-19 16:26] VITALS: BP 134/87
[2021-12-19] MEDS: MIRTAZAPINE 15 MG TABLET PO SCH ×2 (20:14→21:00)
[2021-12-19] MEDS: MELATONIN 5 MG TABLET PO SCH ×2 (20:14→21:00)
[2021-12-20 08:02] VITALS: BP 134/88
[2021-12-20] MEDS: OMEGA-3/DHA/EPA/FISH OIL 1,000 MG CAPSULE PO SCH (08:21)
[2021-12-20] MEDS: OLANZapine 5 MG RAPDIS TABLET PO SCH ×3 (08:21→17:08)
[2021-12-20] MEDS: MULTIVITAMINS WITH MINERALS, THERAPEUTIC TABLET PO SCH (08:21)
[2021-12-20] MEDS: MEGESTROL ACETATE 400 MG/10 ML SUSPENSION UDCUP PO SCH ×2 (08:21→09:00)
[2021-12-20 17:17] VITALS: BP 112/74
[2021-12-20] MEDS: MELATONIN 5 MG TABLET PO SCH (20:23)
[2021-12-20] MEDS: MIRTAZAPINE 15 MG TABLET PO SCH (20:23)
[2021-12-21 08:38] VITALS: BP 124/81
[2021-12-21] MEDS: MEGESTROL ACETATE 400 MG/10 ML SUSPENSION UDCUP PO SCH (08:39)
[2021-12-21] MEDS: OLANZapine 5 MG RAPDIS TABLET PO SCH ×3 (08:39→16:36)
[2021-12-21] MEDS: OMEGA-3/DHA/EPA/FISH OIL 1,000 MG CAPSULE PO SCH (08:39)
[2021-12-21] MEDS: MULTIVITAMINS WITH MINERALS, THERAPEUTIC TABLET PO SCH (08:39)
[2021-12-21 16:11] VITALS: BP 102/81
[2021-12-21] MEDS: MELATONIN 5 MG TABLET PO SCH (20:26)
[2021-12-21] MEDS: MIRTAZAPINE 15 MG TABLET PO SCH (20:26)
[2021-12-22] MEDS: OLANZapine 5 MG RAPDIS TABLET PO SCH ×4 (08:03→17:00)
[2021-12-22] MEDS: MEGESTROL ACETATE 400 MG/10 ML SUSPENSION UDCUP PO SCH (08:03)
[2021-12-22] MEDS: MULTIVITAMINS WITH MINERALS, THERAPEUTIC TABLET PO SCH (08:03)
[2021-12-22] MEDS: OMEGA-3/DHA/EPA/FISH OIL 1,000 MG CAPSULE PO SCH (08:03)
[2021-12-22 08:43] VITALS: BP 143/102
[2021-12-22] MEDS ORDERED: TUBERCULIN, PURIFIED PROTEIN DERIVATIVE 5 TU/0.1 ML SYRINGE ID ONE (15:00)
[2021-12-22 16:05] VITALS: BP 123/78
[2021-12-22] MEDS: MIRTAZAPINE 15 MG TABLET PO SCH (21:00)
[2021-12-22] MEDS: MELATONIN 5 MG TABLET PO SCH (21:00)
[2021-12-23 04:53] VITALS: BP 98/78
[2021-12-23] MEDS: MEGESTROL ACETATE 400 MG/10 ML SUSPENSION UDCUP PO SCH (08:03)
[2021-12-23] MEDS: MULTIVITAMINS WITH MINERALS, THERAPEUTIC TABLET PO SCH (08:03)
[2021-12-23] MEDS: OMEGA-3/DHA/EPA/FISH OIL 1,000 MG CAPSULE PO SCH (08:03)
[2021-12-23] MEDS: OLANZapine 5 MG RAPDIS TABLET PO SCH ×3 (08:04→16:05)
[2021-12-23 08:48] VITALS: BP 121/83
[2021-12-23] MEDS ORDERED: COVID-19 VACCINE, MRNA(PFIZER)/PF 30 MCG/0.3 ML VIAL IM. ONE (14:15)
[2021-12-23 16:19] VITALS: BP 100/63
[2021-12-23 18:25] LABS: COVID AG,FIA SOURCE NASAL SWAB
[2021-12-23] MEDS: MIRTAZAPINE 15 MG TABLET PO SCH (20:43)
[2021-12-23] MEDS: MELATONIN 5 MG TABLET PO SCH (20:43)
[2021-12-24] MEDS: OLANZapine 5 MG RAPDIS TABLET PO SCH ×3 (08:13→17:01)
[2021-12-24] MEDS: MULTIVITAMINS WITH MINERALS, THERAPEUTIC TABLET PO SCH (08:13)
[2021-12-24] MEDS: MEGESTROL ACETATE 400 MG/10 ML SUSPENSION UDCUP PO SCH (08:14)
[2021-12-24] MEDS: OMEGA-3/DHA/EPA/FISH OIL 1,000 MG CAPSULE PO SCH (08:14)
[2021-12-24 08:15] VITALS: BP 102/69
[2021-12-24 16:18] VITALS: BP 130/70
[2021-12-24] MEDS ORDERED: MELA5TAB40 PO (16:24)
[2021-12-24] MEDS ORDERED: OLAN5TAB94 PO (16:24)
[2021-12-24] MEDS ORDERED: MIRT-89 PO (16:24)
[2021-12-24] MEDS ORDERED: OMEG-135 PO (16:24)
[2021-12-24] MEDS: MIRTAZAPINE 15 MG TABLET PO SCH (21:00)
[2021-12-24] MEDS: MELATONIN 5 MG TABLET PO SCH (21:00)
[2021-12-25 07:59] VITALS: BP 132/83
[2021-12-25 08:02] VITALS: BP 132/83
[2021-12-25] MEDS: OMEGA-3/DHA/EPA/FISH OIL 1,000 MG CAPSULE PO SCH (08:15)
[2021-12-25] MEDS: OLANZapine 5 MG RAPDIS TABLET PO SCH ×3 (08:15→17:24)
[2021-12-25] MEDS: MULTIVITAMINS WITH MINERALS, THERAPEUTIC TABLET PO SCH (08:15)
[2021-12-25] MEDS: MEGESTROL ACETATE 400 MG/10 ML SUSPENSION UDCUP PO SCH (08:16)
[2021-12-25 17:13] VITALS: BP 98/61
[2021-12-25] MEDS: MELATONIN 5 MG TABLET PO SCH (21:00)
[2021-12-25] MEDS: MIRTAZAPINE 15 MG TABLET PO SCH (21:00)
[2021-12-26 01:53] VITALS: BP 106/74
[2021-12-26] MEDS: MEGESTROL ACETATE 400 MG/10 ML SUSPENSION UDCUP PO SCH (08:39)
[2021-12-26] MEDS: OLANZapine 5 MG RAPDIS TABLET PO SCH ×3 (08:39→17:03)
[2021-12-26] MEDS: MULTIVITAMINS WITH MINERALS, THERAPEUTIC TABLET PO SCH (08:39)
[2021-12-26] MEDS: OMEGA-3/DHA/EPA/FISH OIL 1,000 MG CAPSULE PO SCH (08:41)
[2021-12-26 09:15] VITALS: BP 104/67
[2021-12-26 16:01] VITALS: BP 94/61
[2021-12-26] MEDS: MIRTAZAPINE 15 MG TABLET PO SCH (21:03)
[2021-12-26] MEDS: MELATONIN 5 MG TABLET PO SCH (21:04)
[2021-12-27 08:06] VITALS: BP 114/79
[2021-12-27] MEDS: OMEGA-3/DHA/EPA/FISH OIL 1,000 MG CAPSULE PO SCH (08:52)
[2021-12-27] MEDS: MEGESTROL ACETATE 400 MG/10 ML SUSPENSION UDCUP PO SCH (08:52)
[2021-12-27] MEDS: OLANZapine 5 MG RAPDIS TABLET PO SCH ×3 (08:52→16:16)
[2021-12-27] MEDS: MULTIVITAMINS WITH MINERALS, THERAPEUTIC TABLET PO SCH (08:52)
[2021-12-27 16:49] VITALS: BP 109/77
[2021-12-27] MEDS: MELATONIN 5 MG TABLET PO SCH (20:07)
[2021-12-27] MEDS: MIRTAZAPINE 15 MG TABLET PO SCH (20:07)
[2021-12-28 00:30] VITALS: BP 116/65
[2021-12-28] MEDS: MULTIVITAMINS WITH MINERALS, THERAPEUTIC TABLET PO SCH (08:13)
[2021-12-28] MEDS: OMEGA-3/DHA/EPA/FISH OIL 1,000 MG CAPSULE PO SCH (08:13)
[2021-12-28] MEDS: MEGESTROL ACETATE 400 MG/10 ML SUSPENSION UDCUP PO SCH (08:14)
[2021-12-28] MEDS: OLANZapine 5 MG RAPDIS TABLET PO SCH ×3 (08:14→17:10)
[2021-12-28 09:06] VITALS: BP 127/88
[2021-12-28 16:10] VITALS: BP 102/76
[2021-12-28] MEDS: MIRTAZAPINE 15 MG TABLET PO SCH (21:20)
[2021-12-28] MEDS: MELATONIN 5 MG TABLET PO SCH (21:20)
[2021-12-29 08:00] VITALS: BP 129/84
[2021-12-29] MEDS: MULTIVITAMINS WITH MINERALS, THERAPEUTIC TABLET PO SCH (08:21)
[2021-12-29] MEDS: OLANZapine 5 MG RAPDIS TABLET PO SCH ×3 (08:22→17:24)
[2021-12-29] MEDS: MEGESTROL ACETATE 400 MG/10 ML SUSPENSION UDCUP PO SCH ×2 (08:22→09:00)
[2021-12-29] MEDS: OMEGA-3/DHA/EPA/FISH OIL 1,000 MG CAPSULE PO SCH (08:22)
[2021-12-29 12:46] VITALS: BP 111/77
[2021-12-29 16:03] VITALS: BP 98/66
[2021-12-29] MEDS: MIRTAZAPINE 15 MG TABLET PO SCH (20:56)
[2021-12-29] MEDS: MELATONIN 5 MG TABLET PO SCH (21:15)
[2021-12-30] MEDS: MULTIVITAMINS WITH MINERALS, THERAPEUTIC TABLET PO SCH (08:32)
[2021-12-30] MEDS: OLANZapine 5 MG RAPDIS TABLET PO SCH ×3 (08:33→17:09)
[2021-12-30] MEDS: OMEGA-3/DHA/EPA/FISH OIL 1,000 MG CAPSULE PO SCH (08:33)
[2021-12-30] MEDS: MEGESTROL ACETATE 400 MG/10 ML SUSPENSION UDCUP PO SCH (08:33)
[2021-12-30 09:26] VITALS: BP 112/83
[2021-12-30 15:13] LABS: COVID AG,FIA SOURCE NASOPHARYNGEAL
[2021-12-30 17:17] VITALS: BP 115/70
[2021-12-30] MEDS: MELATONIN 5 MG TABLET PO SCH (20:45)
[2021-12-30] MEDS: MIRTAZAPINE 15 MG TABLET PO SCH (20:45)
[2021-12-31] MEDS: OLANZapine 5 MG RAPDIS TABLET PO SCH ×3 (08:26→16:57)
[2021-12-31] MEDS: OMEGA-3/DHA/EPA/FISH OIL 1,000 MG CAPSULE PO SCH (08:26)
[2021-12-31] MEDS: MEGESTROL ACETATE 400 MG/10 ML SUSPENSION UDCUP PO SCH ×2 (08:26→09:00)
[2021-12-31] MEDS: MULTIVITAMINS WITH MINERALS, THERAPEUTIC TABLET PO SCH (08:27)
[2021-12-31 09:00] VITALS: BP 107/53
[2021-12-31 16:26] VITALS: BP 99/69
[2021-12-31] MEDS: MELATONIN 5 MG TABLET PO SCH (21:09)
[2021-12-31] MEDS: MIRTAZAPINE 15 MG TABLET PO SCH (21:09)
[2022-01-01 08:00] VITALS: BP 96/61
[2022-01-01] MEDS: OLANZapine 5 MG RAPDIS TABLET PO SCH ×2 (08:02→12:36)
[2022-01-01] MEDS: OMEGA-3/DHA/EPA/FISH OIL 1,000 MG CAPSULE PO SCH (08:02)
[2022-01-01] MEDS: MULTIVITAMINS WITH MINERALS, THERAPEUTIC TABLET PO SCH (08:02)
[2022-01-01] MEDS: MEGESTROL ACETATE 400 MG/10 ML SUSPENSION UDCUP PO SCH (08:08)
[2022-01-01 12:42] LABS: COVID AG,FIA SOURCE NASOPHARYNGEAL
[2022-01-01] MEDS ORDERED: MEGE40TA8 PO (13:37)
[2022-01-01] MEDS ORDERED: MULT-1239 PO (13:37)
== END 2022-01-01 14:40 | disposition home or self-care (01) | DRG 750 ==
LOC: 3EI 20:20 → 3EX 12-21 20:30
PROVIDERS: ADMIT Psychiatry & Neurology Psychiatry; ATTEND Psychiatry & Neurology Psychiatry
DX: F25.9 Schizoaffective disorder, unspecified (principal); G93.41 Metabolic encephalopathy; R62.7 Adult failure to thrive; Z68.44 Body mass index [BMI] 60.0-69.9, adult; F70 Mild intellectual disabilities; E03.9 Hypothyroidism, unspecified; G47.00 Insomnia, unspecified; K59.00 Constipation, unspecified; F41.9 Anxiety disorder, unspecified; N39.0 Urinary tract infection, site not specified; F19.10 Other psychoactive substance abuse, uncomplicated; Z20.822 Contact with and (suspected) exposure to COVID-19; Z55.9 Problems related to education and literacy, unspecified; Z72.0 Tobacco use; Z59.9 Problem related to housing and economic circumstances, unspecified; Z63.9 Problem related to primary support group, unspecified; Z65.3 Problems related to other legal circumstances; Z71.6 Tobacco abuse counseling
CPT/HCPCS: 0004A; 80051; 80053; 80061; 81001; 83036; 83735; 84100; 84439; 84443; 84702; 85025; 86592; 87081; 87086; 91300; 92610; G0378; J3420; Q9967

== ENCOUNTER 2022-10-01 11:09 | Inpatient (IN) | payer MEDICAID, OTHER ==
[~2022-10-01] VITALS: Ht 157.5 cm; Wt 49.9 kg
[~2022-10-01 11:09] MED LIST: MEGE40TA8 PO; MELA5TAB40 PO; MIRT-89 PO; MULT-1239 PO; OLAN5TAB94 PO; OMEG-135 PO
[2022-10-01 12:51] LABS: BASOPHILS % (AUTO) 0.5 % (0.0-2.0); EOSINOPHILS % (AUTO) 0.4 % (1.0-6.0); HEMATOCRIT 45.6 % (36-46); HEMOGLOBIN 14.8 g/dL (12.0-16.0); LYMPHOCYTES # (AUTO) 1.9 K/uL (1.0-4.8); MEAN CORPUSCULAR HEMOGLOBIN 24.8 pg (26.0-34.0); MEAN CORPUSCULAR HGB CONC 32.4 G/dL (31.0-37.0); MEAN CORPUSCULAR VOLUME 77 fL (80-100); MONOCYTES # (AUTO) 0.8 K/uL (0.1-1.0); MONOCYTES % (AUTO) 10.3 % (2.0-9.0); NEUTROPHILS # (AUTO) 4.8 K/uL (1.8-7.7); NEUTROPHILS % (AUTO) 63.8 % (40.0-70.0); PLATELET COUNT (AUTO) 220 K/uL (150-450); RED BLOOD CELL COUNT(AUTO) 5.96 MIL/uL (4.00-5.20); RED CELL DISTRIBUTION WIDTH 14.8 % (11.5-14.5)
[2022-10-01 13:05] LABS: ANION GAP 15 mmol/L (8-16); CALCIUM, TOTAL 9.4 mg/dL (8.8-10.5); CARBON DIOXIDE 18 mmol/L (22-29); CHLORIDE 105 mmol/L (98-107); CREATININE 0.89 mg/dL (0.60-1.30); GLUCOSE,RANDOM 73 mg/dL (70-110); POTASSIUM 4.3 mmol/L (3.5-5.1); SODIUM SERUM 138 mmol/L (136-145); UREA NITROGEN, BLOOD 14 mg/dL (7-18)
[2022-10-01 13:06] LABS: GLOMERULAR FILTR. RATE CALC > 60 mL/min (>60)
[2022-10-01 13:11] LABS: ALANINE AMINOTRANSFERASE 53 U/L (12-78); ALBUMIN 3.9 g/dL (3.4-5.0); ALKALINE PHOSPHATASE 94 U/L (46-116); ASPARTATE AMINOTRANSFERASE 39 U/L (15-37); BILIRUBIN,TOTAL 0.5 mg/dL (0.1-1.0); TOTAL PROTEIN, SERUM 8.2 g/dL (6.4-8.2)
[2022-10-01 14:21] LABS: COVID AG,FIA SOURCE NASAL SWAB
[2022-10-01] MEDS ORDERED: LORazepam 2 MG TABLET PO PRN (15:15)
[2022-10-01] MEDS ORDERED: ZOLPIDEM TARTRATE 10 MG TABLET PO PRN (15:15)
[2022-10-01] MEDS ORDERED: QUEtiapine FUMARATE 100 MG TABLET PO PRN (15:15)
[2022-10-01 23:52] VITALS: BP 135/90
[2022-10-02] VITALS: BP 135/90
[2022-10-02 00:07] VITALS: BP 135/90
[2022-10-02] MEDS ORDERED: INFLUENZA VIRUS VACCINE QVS 2022-23 (6MO+)/PF 60 MCG/0.5 ML SYRINGE IM. ONE (00:15)
[2022-10-02] MEDS ORDERED: ACETAMINOPHEN 325 MG TABLET PO PRN (05:30)
[2022-10-02] MEDS ORDERED: ONDANSETRON HCL 4 MG TABLET PO PRN (05:30)
[2022-10-02] MEDS ORDERED: MAGNESIUM HYDROXIDE SUSPENSION 30 ML UDCUP PO PRN (05:30)
[2022-10-02] MEDS ORDERED: LOPERAMIDE HCL 2 MG CAPSULE PO PRN (05:30)
[2022-10-02] MEDS ORDERED: IBUPROFEN 600 MG TABLET PO PRN (05:30)
[2022-10-02] MEDS ORDERED: PETROLATUM,WHITE 28 GM JELLY TP PRN (05:30)
[2022-10-02] MEDS ORDERED: BACITRACIN 28 GM OINTMENT TP PRN (05:30)
[2022-10-02] MEDS ORDERED: CloNIDine HCL 0.1 MG TABLET PO PRN (05:30)
[2022-10-02] MEDS ORDERED: MAG HYDROX/AL HYDROX/SIMETH ES 30 ML SUSPENSION UDCUP PO PRN (05:30)
[2022-10-02] MEDS ORDERED: BENZOCAINE/MENTHOL LOZENGE PO PRN (05:30)
[2022-10-02] MEDS ORDERED: OMEPRAZOLE 20 MG CAPSULE PO PRN (05:30)
[2022-10-02] MEDS ORDERED: DOCUSATE SODIUM 100 MG CAPSULE PO PRN (05:30)
[2022-10-02] MEDS ORDERED: ALBUTEROL SULFATE HFA 90 MCG/PUFF 8 GM INHALER IH PRN (05:30)
[2022-10-02 08:30] VITALS: BP 102/64
[2022-10-02] MEDS: DIVALPROEX SODIUM 500 MG DR TABLET PO SCH (21:00)
[2022-10-02] MEDS: TraZODone HCL 100 MG TABLET PO SCH (21:00)
[2022-10-02] MEDS: OLANZapine 10 MG TABLET PO SCH (21:00)
[2022-10-03 09:02] VITALS: BP 126/82
[2022-10-03] MEDS: DIVALPROEX SODIUM 500 MG DR TABLET PO SCH ×2 (10:03→20:30)
[2022-10-03] MEDS: LITHIUM CARBONATE 300 MG CAPSULE PO SCH ×2 (10:03→17:24)
[2022-10-03] MEDS: TraZODone HCL 100 MG TABLET PO SCH (20:30)
[2022-10-03] MEDS: OLANZapine 10 MG TABLET PO SCH (20:30)
[2022-10-04] MEDS: DIVALPROEX SODIUM 500 MG DR TABLET PO SCH ×2 (08:24→20:24)
[2022-10-04] MEDS: LITHIUM CARBONATE 300 MG CAPSULE PO SCH ×2 (08:24→16:47)
[2022-10-04 10:09] VITALS: BP 123/84
[2022-10-04 16:43] VITALS: BP 131/90
[2022-10-04] MEDS: OLANZapine 10 MG TABLET PO SCH (20:25)
[2022-10-04] MEDS: TraZODone HCL 100 MG TABLET PO SCH (20:25)
[2022-10-05 09:00] VITALS: BP 115/76
[2022-10-05] MEDS: LITHIUM CARBONATE 300 MG CAPSULE PO SCH ×3 (09:52→17:06)
[2022-10-05] MEDS: DIVALPROEX SODIUM 500 MG DR TABLET PO SCH ×2 (09:52→20:58)
[2022-10-05 18:07] VITALS: BP 118/73
[2022-10-05] MEDS: TraZODone HCL 100 MG TABLET PO SCH (20:58)
[2022-10-05] MEDS: OLANZapine 10 MG TABLET PO SCH (20:59)
[2022-10-06 08:00] VITALS: BP 106/76
[2022-10-06] MEDS: LITHIUM CARBONATE 300 MG CAPSULE PO SCH ×2 (10:17→16:56)
[2022-10-06] MEDS: DIVALPROEX SODIUM 500 MG DR TABLET PO SCH ×2 (10:17→20:21)
[2022-10-06 16:00] VITALS: BP 114/78
[2022-10-06] MEDS: TraZODone HCL 100 MG TABLET PO SCH (20:21)
[2022-10-06] MEDS: OLANZapine 10 MG TABLET PO SCH (20:21)
[2022-10-07 06:35] LABS: COVID AG,FIA SOURCE NASAL SWAB
[2022-10-07 07:26] LABS: LITHIUM 0.77 mmol/L (0.60-1.20)
[2022-10-07 08:10] VITALS: BP 129/89
[2022-10-07] MEDS: DIVALPROEX SODIUM 500 MG DR TABLET PO SCH ×4 (09:00→20:59)
[2022-10-07] MEDS: LITHIUM CARBONATE 300 MG CAPSULE PO SCH ×4 (09:00→17:26)
[2022-10-07 16:51] VITALS: BP 136/77
[2022-10-07] MEDS: OLANZapine 10 MG TABLET PO SCH (20:59)
[2022-10-07] MEDS: TraZODone HCL 100 MG TABLET PO SCH (20:59)
[2022-10-08] MEDS: DIVALPROEX SODIUM 500 MG DR TABLET PO SCH ×2 (09:00→20:28)
[2022-10-08] MEDS: LITHIUM CARBONATE 300 MG CAPSULE PO SCH ×2 (09:20→17:00)
[2022-10-08 09:36] VITALS: BP 110/68
[2022-10-08 16:58] VITALS: BP 106/67
[2022-10-08] MEDS: OLANZapine 10 MG TABLET PO SCH (20:28)
[2022-10-08] MEDS: TraZODone HCL 100 MG TABLET PO SCH (20:28)
[2022-10-09] MEDS: DIVALPROEX SODIUM 500 MG DR TABLET PO SCH ×3 (08:36→20:35)
[2022-10-09] MEDS: LITHIUM CARBONATE 300 MG CAPSULE PO SCH ×3 (08:36→16:23)
[2022-10-09] MEDS: MULTIVITAMINS WITH MINERALS, THERAPEUTIC TABLET PO SCH ×2 (08:36→09:00)
[2022-10-09 09:15] VITALS: BP 104/79
[2022-10-09 16:49] VITALS: BP 100/75
[2022-10-09] MEDS: TraZODone HCL 100 MG TABLET PO SCH (20:35)
[2022-10-09] MEDS: OLANZapine 10 MG TABLET PO SCH (20:35)
[2022-10-10 08:00] VITALS: BP 104/70
[2022-10-10] MEDS: LITHIUM CARBONATE 300 MG CAPSULE PO SCH ×2 (09:35→16:29)
[2022-10-10] MEDS: DIVALPROEX SODIUM 500 MG DR TABLET PO SCH ×2 (09:35→20:10)
[2022-10-10] MEDS: MULTIVITAMINS WITH MINERALS, THERAPEUTIC TABLET PO SCH (09:38)
[2022-10-10 16:34] VITALS: BP 99/60
[2022-10-10] MEDS: OLANZapine 10 MG TABLET PO SCH (20:10)
[2022-10-10] MEDS: TraZODone HCL 100 MG TABLET PO SCH (20:11)
[2022-10-11 08:50] VITALS: BP 103/71
[2022-10-11] MEDS: MULTIVITAMINS WITH MINERALS, THERAPEUTIC TABLET PO SCH (09:15)
[2022-10-11] MEDS: DIVALPROEX SODIUM 500 MG DR TABLET PO SCH ×2 (09:15→20:36)
[2022-10-11] MEDS: LITHIUM CARBONATE 300 MG CAPSULE PO SCH ×2 (09:15→17:54)
[2022-10-11 16:00] VITALS: BP 102/70
[2022-10-11] MEDS: TraZODone HCL 100 MG TABLET PO SCH (20:36)
[2022-10-11] MEDS: OLANZapine 10 MG TABLET PO SCH (20:36)
[2022-10-12] MEDS: MULTIVITAMINS WITH MINERALS, THERAPEUTIC TABLET PO SCH (08:05)
[2022-10-12] MEDS: LITHIUM CARBONATE 300 MG CAPSULE PO SCH ×2 (08:05→16:31)
[2022-10-12] MEDS: DIVALPROEX SODIUM 500 MG DR TABLET PO SCH ×2 (08:05→21:22)
[2022-10-12 10:15] VITALS: BP 99/67
[2022-10-12] MEDS: OLANZapine 10 MG TABLET PO SCH (21:22)
[2022-10-12] MEDS: TraZODone HCL 100 MG TABLET PO SCH (21:22)
[2022-10-13] MEDS: LITHIUM CARBONATE 300 MG CAPSULE PO SCH ×2 (08:25→16:29)
[2022-10-13] MEDS: MULTIVITAMINS WITH MINERALS, THERAPEUTIC TABLET PO SCH (08:25)
[2022-10-13] MEDS: DIVALPROEX SODIUM 500 MG DR TABLET PO SCH ×2 (08:25→21:03)
[2022-10-13 08:33] VITALS: BP 109/68
[2022-10-13 16:00] VITALS: BP 86/59
[2022-10-13] MEDS: OLANZapine 10 MG TABLET PO SCH (21:03)
[2022-10-13] MEDS: TraZODone HCL 100 MG TABLET PO SCH (21:03)
[2022-10-14 07:41] LABS: COVID AG,FIA SOURCE NASAL SWAB
[2022-10-14 08:30] VITALS: BP 104/70
[2022-10-14] MEDS: MULTIVITAMINS WITH MINERALS, THERAPEUTIC TABLET PO SCH (09:10)
[2022-10-14] MEDS: LITHIUM CARBONATE 300 MG CAPSULE PO SCH ×2 (09:10→16:30)
[2022-10-14] MEDS: DIVALPROEX SODIUM 500 MG DR TABLET PO SCH (09:10)
[2022-10-14] MEDS ORDERED: OLAN10 PO (13:46)
[2022-10-14] MEDS ORDERED: DIVA-112 PO (13:46)
[2022-10-14] MEDS ORDERED: LITH300C3 PO (13:46)
[2022-10-14] MEDS ORDERED: TRAZ-257 PO (13:46)
[2022-10-14 16:16] VITALS: BP 111/68
== END 2022-10-14 16:53 | disposition home or self-care (01) | DRG 750 ==
LOC: EMS 11:14 → 3EI 20:58
PROVIDERS: ADMIT Psychiatry & Neurology Psychiatry; ATTEND Psychiatry & Neurology Psychiatry
DX: F25.9 Schizoaffective disorder, unspecified (principal); E66.9 Obesity, unspecified; F94.0 Selective mutism; F41.9 Anxiety disorder, unspecified; G47.00 Insomnia, unspecified; K59.00 Constipation, unspecified; Z20.822 Contact with and (suspected) exposure to COVID-19; F32.A Depression, unspecified; Z82.49 Family history of ischemic heart disease and other diseases of the circulatory system; Z83.3 Family history of diabetes mellitus; Z68.20 Body mass index [BMI] 20.0-20.9, adult; Z28.21 Immunization not carried out because of patient refusal
CPT/HCPCS: 80053; 80164; 80178; 84703; 85025; 99285; G0480

== ENCOUNTER 2022-12-31 15:02 | Emergency (ER) | payer MEDICAID, OTHER ==
[~2022-12-31] VITALS: Ht 160 cm; Wt 61.4 kg
[~2022-12-31 15:02] MED LIST changes: +DIVA-112 PO; +LITH300C3 PO; -MEGE40TA8 PO; -MELA5TAB40 PO; -MIRT-89 PO; -MULT-1239 PO; +OLAN10 PO; -OLAN5TAB94 PO; -OMEG-135 PO; +TRAZ-257 PO
[2022-12-31 15:49] LABS: BASOPHILS % (AUTO) 0.9 % (0.0-2.0); EOSINOPHILS % (AUTO) 1.6 % (1.0-6.0); HEMATOCRIT 40.2 % (36-46); LYMPHOCYTES # (AUTO) 3.2 K/uL (1.0-4.8); LYMPHOCYTES % (AUTO) 39.2 % (22.0-44.0); MEAN CORPUSCULAR HEMOGLOBIN 27.8 pg (26.0-34.0); MEAN CORPUSCULAR HGB CONC 32.3 G/dL (31.0-37.0); MEAN CORPUSCULAR VOLUME 86 fL (80-100); MONOCYTES # (AUTO) 1.2 K/uL (0.1-1.0); NEUTROPHILS # (AUTO) 3.5 K/uL (1.8-7.7); NEUTROPHILS % (AUTO) 43.3 % (40.0-70.0); PLATELET COUNT (AUTO) 187 K/uL (150-450); RED BLOOD CELL COUNT(AUTO) 4.67 MIL/uL (4.00-5.20); RED CELL DISTRIBUTION WIDTH 15.4 % (11.5-14.5)
[2022-12-31 16:01] LABS: PROTHROMBIN TIME 11.1 SEC (9.4-11.6)
[2022-12-31 16:04] LABS: CALCIUM, TOTAL 9.3 mg/dL (8.8-10.5); CREATININE 1.09 mg/dL (0.60-1.30); POTASSIUM 4.8 mmol/L (3.5-5.1)
[2022-12-31 16:10] LABS: ALBUMIN 3.4 g/dL (3.4-5.0); BILIRUBIN,TOTAL 0.1 mg/dL (0.1-1.0); TOTAL PROTEIN, SERUM 7.1 g/dL (6.4-8.2)
[2022-12-31] MEDS ORDERED: SODIUM CHLORIDE 0.9% 1,000 ML IV ONE (16:15)
[2022-12-31 17:14] VITALS: BP 123/90
== END 2022-12-31 17:50 | disposition home or self-care (01) ==
LOC: EMS 15:02
DX: I49.8 Other specified cardiac arrhythmias (principal)
CPT/HCPCS: 99285; 96360; 71045; 80053; 80178; 83880; 84484; 85025; 85610; 85730; 93005; J7030